=== PATIENT | female | born 1945 | race Caucasian/White ===

== ENCOUNTER 2018-05-02 16:06 | Outpatient (REF) | payer MEDICARE, OTHER, SELFPAY ==
[2018-05-02 22:21] LABS: Cholesterol 160 mg/dL (50-200); HDL Cholesterol 75 mg/dL (40-60); LDL CHOLESTEROL 63 mg/dL (<100); Triglyceride 122 mg/dL (30-150)
[2018-05-04 12:32] LABS: Hepatitis C Ab w Rflx HCV PCR Negative (NEGAT)
== END 2018-05-02 16:26 ==
LOC: NCHCN 16:06
PROVIDERS: PCP Internal Medicine; Visit Provider Internal Medicine
DX: E78.5 Hyperlipidemia, unspecified (principal); Z11.59 Encounter for screening for other viral diseases
CPT/HCPCS: 80061; 83721; 86803

== ENCOUNTER 2018-09-26 01:36 | Outpatient (CLI) | payer MEDICARE, OTHER, SELFPAY ==
--- NOTE | 2018-09-26 13:00 | SATEXT_ITS ---
Assessment: Ms. Wilson presents for nutritional counseling for weight management. She reports that she has struggled with her weight for most of her life. She is 58 and 246 lbs. Her diet currently consists of breakfast which is an Hebrew muffin or bagel thin with peanut butter and honey and coffee. She then snacks on a few chips or a few cookies. Lunch is a sandwich on low calorie bread or cottage cheese and greens. She then has a snack of cheese or peanuts. Dinner is protein and a veggie and cottage cheese. She then has a snack of sugar free pudding. In the past she has done swim therapy for her physical activity and overall has enjoyed it. Currently she is not active. She relays a very stressful time recently with her having been sick. Nutritional Diagnosis: Class 3 obesity related to excess energy intake and physical inactivity as evidenced by a BMI of 51.75 kg/m2 Intervention: We discussed that her weight has been a life long struggle and that she has significant weight that she would like to lose. To that end, it is important to set small goals to get her to her big goal. She verbalized a good understanding of that concept. Until our next session, Ms. Wilson, will either change or eliminate her snacks. Provided low calorie, non-caloric, and high protein snack ideas should she feel she needs a snack. Her second action plan is to get signed back up for swim therapy. Ms. Wilson agrees to the action plans. Monitoring and Evaluation: 1. Will monitor her progress on her action plans when she returns in a few weeks. 2. Will evaluate her nutrition care plan at that time and adjust it as needed. Thank you for the referral. Total time spent with patient face to face was 40 minutes.
== END 2018-09-26 01:56 ==
PROVIDERS: PCP Internal Medicine; Visit Provider Dietitian, Registered
DX: E66.8 Other obesity (principal); Z68.42 Body mass index [BMI] 45.0-49.9, adult; Z71.3 Dietary counseling and surveillance
CPT/HCPCS: 97802

== ENCOUNTER 2018-10-27 02:42 | Outpatient (CLI) | payer MEDICARE, OTHER, SELFPAY ==
--- NOTE | 2018-10-27 14:00 | NS.NUTBLAN_ITS ---
Ms. Wilson returns for follow up for weight management nutrition therapy. She has started swim therapy. She reports that she is keeping her portions moderate and increasing her vegetables. Her weight is stable at 246.5 lbs.. Provided several recipes that include vegetables so she can continue to improve her diet. She will return for follow up in three weeks. Total time spent with patient was 40 minutes.
== END 2018-10-27 03:02 ==
PROVIDERS: PCP Internal Medicine; Visit Provider Dietitian, Registered
DX: E66.9 Obesity, unspecified (principal); Z68.43 Body mass index [BMI] 50.0-59.9, adult; Z71.3 Dietary counseling and surveillance
CPT/HCPCS: 97803

== ENCOUNTER 2018-11-30 13:40 | Outpatient (REF) | payer MEDICARE, OTHER, SELFPAY ==
[2018-11-30 21:41] LABS: Anion Gap 12.5 mmol/L (3-11); BUN 11 mg/dL (7-18); CO2 24.5 mmol/L (21.0-32.0); CREATININE 0.85 mg/dL (0.55-1.02); Calcium 8.8 mg/dL (8.5-10.1); Chloride 91 mmol/L (98-107); Glucose 126 mg/dL (70-100); Potassium 4.7 mmol/L (3.5-5.1); Sodium 128 mmol/L (136-145)
== END 2018-11-30 14:00 ==
LOC: NCHCN 13:40
PROVIDERS: PCP Internal Medicine; Visit Provider Internal Medicine
DX: I27.20 Pulmonary hypertension, unspecified (principal)
CPT/HCPCS: 80048

== ENCOUNTER 2019-06-07 16:59 | Outpatient (REF) | payer MEDICARE, OTHER, SELFPAY ==
[2019-06-07 21:16] LABS: HCT 35.8 % (36.0-46.0); HGB 11.4 g/dL (12.0-15.5); Mean Corp. HGB Concentration 31.8 g/dL (32.0-36.0); Mean Corpuscular Hemoglobin 29.2 pg (27.0-33.0); Mean Corpuscular Volume 91.6 fL (80-95); Mean Platelet Volume 11.3 fL (8.0-11.0); Platelet Count 258 x1000/uL (130-400); RBC 3.91 m/cumm (4.00-5.20); RBC Distribution Width 14.7 % (11.7-14.6); White Blood Cell Count 6.56 k/cumm (4.4-10.8)
[2019-06-07 21:23] LABS: ALT 22 U/L (14-59); AST 10 U/L (15-37); Albumin 3.8 g/dL (3.4-5.0); Alkaline Phosphatase 98 U/L (46-116); Anion Gap 10.3 mmol/L (3-11); BUN 16 mg/dL (7-18); Bilirubin, Total 0.3 mg/dL (0.2-1.0); CO2 26.7 mmol/L (21.0-32.0); CREATININE 1.09 mg/dL (0.55-1.02); Calcium 8.8 mg/dL (8.5-10.1); Chloride 98 mmol/L (98-107); Estimated GFR 49.07 (mL/min/1.73m2); Glucose 122 mg/dL (74-106); Potassium 4.5 mmol/L (3.5-5.1); Sodium 135 mmol/L (136-145); Total Protein 7.5 g/dL (6.4-8.2)
[2019-06-07 21:47] LABS: Hemoglobin A1C 6.6 % (3.8-5.6)
== END 2019-06-07 17:19 ==
LOC: NCHCN 16:59
PROVIDERS: PCP Internal Medicine; Visit Provider Internal Medicine
DX: R73.03 Prediabetes (principal); I27.20 Pulmonary hypertension, unspecified; E87.1 Hypo-osmolality and hyponatremia
CPT/HCPCS: 80053; 85027; 83036

== ENCOUNTER 2020-06-23 15:24 | Outpatient (REF) | payer MEDICARE, OTHER, SELFPAY ==
[2020-06-23 21:10] LABS: Anion Gap 6.6 mmol/L (3-11); BUN 16 mg/dL (7-18); CO2 27.4 mmol/L (21.0-32.0); CREATININE 0.76 mg/dL (0.55-1.02); Calcium 8.9 mg/dL (8.5-10.1); Chloride 98 mmol/L (98-107); Glucose 88 mg/dL (74-106); Potassium 4.6 mmol/L (3.5-5.1); Sodium 132 mmol/L (136-145)
[2020-06-23 21:19] LABS: Hemoglobin A1C 6.4 % (<5.7)
== END 2020-06-23 15:44 ==
LOC: NCHCN 15:24
PROVIDERS: PCP Internal Medicine; Visit Provider Internal Medicine
DX: I10 Essential (primary) hypertension (principal); E11.9 Type 2 diabetes mellitus without complications; I27.20 Pulmonary hypertension, unspecified
CPT/HCPCS: 80048; 83036

== ENCOUNTER 2020-11-13 15:25 | Outpatient (REF) | payer MEDICARE, OTHER, SELFPAY ==
[2020-11-13 20:43] LABS: Abs Immature Grans 0.04 10^3/uL (0.0-0.06); Absolute Basophil Count 0.02 10^3/uL (0.0-0.2); Absolute Eosinophil Count 0.11 10^3/uL (0.0-0.7); Absolute Lymphocyte Count 1.45 10^3/uL (1.2-3.4); Absolute Monocyte Count 0.49 10^3/uL (0.1-0.8); Absolute Neutrophil Count 5.43 10^3/uL (1.2-6.7); Basophils % 0.3; Eosinophils % 1.5; HCT 36.5 % (36.0-46.0); HGB 11.8 g/dL (11.2-15.7); Immature Grans % 0.5; Lymphocytes % 19.2; MCH 29.4 pg (27.0-33.0); MCHC 32.3 % (32.0-36.0); MPV 11.6 fL (8.0-11.0); Monocytes % 6.5; Nucleated RBC 0 %; Platelet Count 231 10^3/uL (130-400); RBC 4.01 10^6/uL (3.93-5.22); RDW 14.7 % (11.7-14.6); RDW-SD 49.6 fL; WBC 7.54 10^3/uL (4.4-10.8)
[2020-11-13 21:08] LABS: Anion Gap 10.5 mmol/L (3-11); BUN 15 mg/dL (7-18); CO2 26.5 mmol/L (21.0-32.0); CREATININE 0.8 mg/dL (0.55-1.02); Chloride 100 mmol/L (98-107); Glucose 112 mg/dL (74-106); NT-proBNP 1158 pg/mL (<300); Potassium 4.5 mmol/L (3.5-5.1); Sodium 137 mmol/L (136-145)
== END 2020-11-13 15:26 | disposition home or self-care (01) ==
LOC: NCHCN 15:25
PROVIDERS: PCP Internal Medicine; Visit Provider Internal Medicine
DX: E87.1 Hypo-osmolality and hyponatremia (principal); I50.9 Heart failure, unspecified; R53.83 Other fatigue
CPT/HCPCS: 80048; 83880; 85025

== ENCOUNTER 2020-12-09 01:42 | Outpatient (CLI) | payer MEDICARE, OTHER, SELFPAY ==
--- NOTE | 2020-12-09 14:00 | DI.US_ITS ---
APPROVED REPORT EXAM: Comprehensive 2D, Doppler, and color-flow Echocardiogram Patient Location: Out-Patient Financial Reporting Analyst: Yuni Melchor RDCS ([place]) Indications: SOB Other Information Study Quality: Technically Difficult. Technically limited study due to body habitus,arrhythmia. Conclusion Left Ventricle : The left ventricle is normal size. Left ventricular systolic function is borderline. Unable to accurately visualize all bowles. There is normal left ventricular wall thickness. LVEF is 5 0-55%. Right Ventricle : Right ventricle is grossly normal in size. Right ventricular systolic function is g rossly normal. The RVSP is 36.3 mmHg. Atria : Left atrium is mildly dilated. Right atrium is borderline dilated. Mitral Valve : Moderate mitral annular calcification. Mild mitral regurgitation. No evidence of misty l valve stenosis. Great Vessels : The aortic root is normal in size. The ascending aorta is mildly dilated. Aortic arch is not well visualized. IVC is normal in size and collapses >50% with inspiration. Please see remainder of study for further details. Wall motion Left Ventricle The left ventricle is normal size. Left ventricular systolic function is borderline. There is normal left ventricular wall thickness. Unable to accurately visualize all bowles. There is no ventricular se ptal defect visualized. LVEF is 50-55%. Right Ventricle Right ventricle is grossly normal in size. Right ventricular systolic function is grossly normal. The RVSP is 36.3 mmHg. Atria Left atrium is mildly dilated. Right atrium is borderline dilated. The interatrial septum is intact w ith no evidence for an atrial septal defect. Aortic Valve The aortic valve is normal in structure. Aortic valve is trileaflet. There is no aortic valvular sten osis. No aortic regurgitation is present. Mitral Valve Moderate mitral annular calcification. No evidence of mitral valve stenosis. Mild mitral regurgitatio n. Tricuspid Valve The tricuspid valve is normal in structure. There is no tricuspid valve stenosis. Trace to mild tricu spid regurgitation. Pulmonic Valve Pulmonic valve is not well visualized. There is no pulmonic valvular stenosis. There is no pulmonic v alvular regurgitation. Great Vessels The aortic root is normal in size. The ascending aorta is mildly dilated. Aortic arch is not well vis ualized. IVC is normal in size and collapses >50% with inspiration. Pericardium There is no pericardial effusion. 2D Dimensions IVSD d PLAX 1.02 cm F: 0.6-1.0 LV Vol A2C d MOD 94.1 mL LVPW d PLAX 1.01 cm F: 0.6 - 1.0 LV Vol A4C d MOD 99.8 mL LVID d PLAX 4.14 cm F: 3.8 - 5.2 LA vol/ BSA A2C s A-L 38.2 mL/m2 LVDs 3.05 cm F: 2.2 - 3.5 LA vol/ BSA A4C s A-L 39.0 mL/m2 Ao Root d 3.15 cm F: 2.7 - 3.3 LA Vol/ BSA Biplane s A-L 39.0 mL/m2 RA Area A4C 18.06 cm2 LA Area A4C s MOD 24.02 cm2 RA Vol/ BSA A4C s A-L 25.6 mL/m2 LA Area A2C s MOD 23.98 cm2 Ao Asc Diam d 3.37 cm F: 2.3 - 3.1 LV EF A4C MOD 55.5 % LV EF Teichholz 51.6 % LV EF A2C MOD 50.8 % LVEF (Robins's) 53.42 % F: 54 - 74 LV EF Biplane MOD 53.4 % LV Volume 73.03 mL F: 46 - 106 SV 52.24 mL LV Volume Index 36.15 mL/m2 F: 29 - 61 SV Index 25.78 mL/m2 LV Vol Biplane MOD 97.8 mL FS 26.05 % M-Mode TAPSE 1.47 cm (M/F) >1.7 LV Diastology MV E' medial 0.092 (>0.07 m/s) MV E Vmax 1.38 (0.4-1.3 m/s) LV E/e MED 15.05 (<14) MV E' lateral 0.100 (>0.1 m/s) LV E/e LAT 13.75 (<14) MV E/E' medial 15.07 MV E/E' lateral 13.78 Aortic Valve LVOT Area 2.83 cm2 AoV Area Vmax 2.17 cm2 LVOT Vmax 1.17 m/s AoV Area/ BSA (Vmax) 1.07 cm2/m2 LVOT Mean Maury. 0.70 m/s PRESLEY Mean Maury. 1.91 cm2 LVOT Peak Grad 5.5 mmHg PRESLEY Mean Maury. Index 0.94 cm2/m2 LVOT Mean Grad 2.4 mmHg LVOT VTI 0.233 m LVOT Diam s 1.85 cm AoV Vmax 1.53 m/s Velocity Ratio 0.76 AoV Mean Maury. 1.03 m/s AoV Peak Grad 9.3 mmHg LVOT SV 65.86 mL AoV Mean Grad 4.8 mmHg AoV VTI 0.251 m AoV Area VTI 2.62 cm2 AoV Area/ BSA (VTI) 1.29 cm/m2 Mitral Valve MV DT 227 (160-240 msec) MV PHT 66 msec MV Area PHT 3.34 cm2 MV VTI 0.482 m MV VTI Annulus 0.448 m MV Area VTI 1.28 (4.0-6.0 cm2) Pulmonary Valve PV Vmax 1.12 (0.5-1.5 m/s) RVOT Peak Gr. 1.76 mmHg PV Peak Grad 5.1 mmHg RVOT Mean Gr. 0.75 mmHg PV Mean Grad 2.1 mmHg RVOT VTI 0.106 m PV VTI 0.207 m RVOT Vmax 0.66 m/s Tricuspid Valve TR Peak Grad 33.2 mmHg TR Vmax 2.88 m/s RA Pressure 3.00 mmHg RVSP (TR) 36.3 mmHg
== END 2020-12-09 02:02 ==
PROVIDERS: PCP Internal Medicine; Visit Provider Internal Medicine
DX: R06.02 Shortness of breath (principal); R93.9 Diagnostic imaging inconclusive due to excess body fat of patient; I49.9 Cardiac arrhythmia, unspecified; I34.0 Nonrheumatic mitral (valve) insufficiency; I77.810 Thoracic aortic ectasia
CPT/HCPCS: 93306

== ENCOUNTER → 2021-09-01 13:59 | Outpatient (BNVA) | payer MEDICARE, OTHER, SELFPAY | PROVIDERS: PCP Internal Medicine; Referring Provider Nurse Practitioner Family; Visit Provider Psychiatry & Neurology Neurology | DX: G50.0 Trigeminal neuralgia (principal) | CPT/HCPCS: 99204 ==

== ENCOUNTER → 2021-10-06 12:48 | Outpatient (BNVA) | payer MEDICARE, OTHER, SELFPAY | PROVIDERS: PCP Internal Medicine; Referring Provider Internal Medicine; Visit Provider Psychiatry & Neurology Neurology | DX: G50.0 Trigeminal neuralgia (principal) | CPT/HCPCS: 99213 ==

== ENCOUNTER 2022-02-10 15:50 | Outpatient (REF) | payer MEDICARE, OTHER, SELFPAY ==
[2022-02-10 20:02] LABS: HGB 11.6 g/dL (11.2-15.7); MCH 29.1 pg (27.0-33.0); MCHC 32.2 % (32.0-36.0); MCV 90 fL (80-95); MPV 11.3 fL (8.0-11.0); Platelet Count 251 10^3/uL (130-400); RBC 3.99 10^6/uL (3.93-5.22); RDW 14.6 % (11.7-14.6); RDW-SD 48.8 fL; WBC 7.34 10^3/uL (4.4-10.8)
[2022-02-10 20:19] LABS: ALT 20 U/L (14-59); AST 13 U/L (15-37); Alkaline Phosphatase 97 U/L (46-116); Anion Gap 5.7 mmol/L (3-11); BUN 12 mg/dL (7-18); Bilirubin, Total 0.5 mg/dL (0.2-1.0); CO2 29.3 mmol/L (21.0-32.0); CREATININE 0.8 mg/dL (0.55-1.02); Calcium 9.4 mg/dL (8.5-10.1); Chloride 91 mmol/L (98-107); Estimated GFR 75.84 (mL/min/1.73m2); Glucose 90 mg/dL (74-106); NT-proBNP 474 pg/mL (<300); Potassium 5.5 mmol/L (3.5-5.1); Sodium 126 mmol/L (136-145); Total Protein 7.6 g/dL (6.4-8.2)
== END 2022-02-10 15:51 | disposition home or self-care (01) ==
LOC: NCHCN 15:50
PROVIDERS: PCP Internal Medicine; Visit Provider Nurse Practitioner Family
DX: J44.9 Chronic obstructive pulmonary disease, unspecified (principal); E11.9 Type 2 diabetes mellitus without complications
CPT/HCPCS: 80053; 85027; 83880

== ENCOUNTER → 2022-02-12 01:04 | Outpatient (CLI) | payer MEDICARE, OTHER, SELFPAY ==
--- NOTE | 2022-02-12 | DI.RAD_ITS ---
Exam(s) XR CHEST 2V PA LATERAL EXAM: XR CHEST 2V PA LATERAL CLINICAL HISTORY: COPD MIXED TYPE, J44.9, COUGH, R05.8 TECHNIQUE: COMPARISON: CR CHEST 2 VIEWS PA,LAT from 11/08/2017 FINDINGS: The heart is enlarged. There appear to be some changes of basilar pulmonary scarring. No focal cons olidation. No gross interval change appearance comparison with examination of October 2017. no pleural e ffusion seen. IMPRESSION: Cardiomegaly, no evidence of acute process. RADIATION DOSE DELIVERED: Total DLP
== END ==
PROVIDERS: PCP Internal Medicine; Visit Provider Nurse Practitioner Family
DX: R05.8 Other specified cough (principal); J44.9 Chronic obstructive pulmonary disease, unspecified; I51.7 Cardiomegaly
CPT/HCPCS: 71046

== ENCOUNTER 2022-03-23 15:46 | Outpatient (REF) | payer MEDICARE, OTHER, SELFPAY ==
[2022-03-23 14:44] LABS: HCT 36.3 % (36.0-46.0); HGB 11.7 g/dL (11.2-15.7); MCH 30.3 pg (27.0-33.0); MCHC 32.2 % (32.0-36.0); MCV 94 fL (80-95); Platelet Count 216 10^3/uL (130-400); RBC 3.86 10^6/uL (3.93-5.22); RDW 15.3 % (11.7-14.6); RDW-SD 52.9 fL; WBC 7.15 10^3/uL (4.4-10.8)
[2022-03-23 15:06] LABS: ALT 25 U/L (14-59); AST 17 U/L (15-37); Albumin 3.8 g/dL (3.4-5.0); Alkaline Phosphatase 90 U/L (46-116); Anion Gap 6.4 mmol/L (3-11); BUN 15 mg/dL (7-18); Bilirubin, Total 0.2 mg/dL (0.2-1.0); CO2 30.6 mmol/L (21.0-32.0); CREATININE 0.7 mg/dL (0.55-1.02); Calcium 9.1 mg/dL (8.5-10.1); Chloride 96 mmol/L (98-107); Estimated GFR 89.02 (mL/min/1.73m2); Glucose 96 mg/dL (74-106); NT-proBNP 475 pg/mL (<300); Potassium 5.3 mmol/L (3.5-5.1); Sodium 133 mmol/L (136-145); TSH (W/Ref FT4) 2.14 uIU/mL (0.36-3.74); Total Protein 7.3 g/dL (6.4-8.2)
[2022-03-23 17:55] LABS: Iron 58 ug/dL (50-170); Total Iron Binding Capacity 424 ug/dL (250-450); Transferrin Sat 14 % (15-50)
== END 2022-03-23 15:47 | disposition home or self-care (01) ==
LOC: NCHCN 15:46
PROVIDERS: PCP Internal Medicine; Visit Provider Nurse Practitioner Family
DX: E11.9 Type 2 diabetes mellitus without complications (principal); R53.83 Other fatigue; I10 Essential (primary) hypertension; J44.9 Chronic obstructive pulmonary disease, unspecified
CPT/HCPCS: 80053; 85027; 83540; 83550; 83880; 84443

== ENCOUNTER → 2022-04-14 02:09 | Outpatient (CLI) | payer MEDICARE, OTHER, SELFPAY ==
--- NOTE | 2022-04-14 14:02 | DI.US_ITS ---
APPROVED REPORT EXAM: Comprehensive 2D, Doppler, and color-flow Echocardiogram Patient Location: Out-Patient Canine Enforcement Officer: Yuni Melchor RDCS ([place]) Indications: Heart failure, Cough Other Information Study Quality: Fair. Technically limited study due to body habitus. Conclusion Borderline concentric left ventricular hypertrophy. Estimated ejection fraction is 50 to 55%. Septa l motion suggests an interventricular conduction delay Right ventricle is grossly normal in size and systolic function Both atria are moderately dilated Aortic valve is sclerotic without stenosis or regurgitation Mitral annular calcification. Thickened mitral leaflets. Mild to moderate mitral regurgitation Normal tricuspid valve with mild to moderate regurgitation. Estimated right ventricular systolic pre ssure is 37 mmHg Mildly dilated ascending aorta Patient appears to be in atrial flutter with variable conduction throughout the study, heart rate gen erally controlled Wall motion Left Ventricle The left ventricle is normal size. Left ventricular systolic function is mildly decreased. Borderline concentric left ventricular hypertrophy. There is global hypokinesis of the left ventricle. There is no ventricular septal defect visualized. LVEF is 50-55%. Right Ventricle Right ventricle is grossly normal in size. Right ventricular systolic function is grossly normal. The RVSP is 37.1 mmHg. Atria Left atrium is moderately dilated. Right atrium is moderately dilated. The interatrial septum is inta ct with no evidence for an atrial septal defect. Aortic Valve The Aortic valve is sclerotic. Aortic valve is probably trileaflet. There is no aortic valvular steno sis. No aortic regurgitation is present. Mitral Valve Moderate mitral annular calcification. Mitral valve leaflets are thickened. No evidence of mitral severo ve stenosis. Mild to moderate mitral regurgitation. Tricuspid Valve The tricuspid valve is normal in structure. There is no tricuspid valve stenosis. Mild to moderate tr icuspid regurgitation. Pulmonic Valve The pulmonary valve is normal in structure. There is no pulmonic valvular stenosis. There is no pulmo najma valvular regurgitation. Great Vessels The aortic root is normal in size. The ascending aorta is mildly dilated. Aortic arch is not well vis ualized. IVC is normal in size and collapses >50% with inspiration. Pericardium There is no pericardial effusion. 2D Dimensions IVSD d PLAX 1.06 cm F: 0.6-1.0 LV Vol A2C d MOD 154.0 mL LVPW d PLAX 1.06 cm F: 0.6 - 1.0 LV Vol A4C d MOD 74.1 mL LVID d PLAX 4.15 cm F: 3.8 - 5.2 LA vol/ BSA A2C s A-L 52.7 mL/m2 LVDs 3.15 cm F: 2.2 - 3.5 LA vol/ BSA A4C s A-L 35.5 mL/m2 Ao Root d 2.81 cm F: 2.7 - 3.3 LA Vol/ BSA Biplane s A-L 44.9 mL/m2 RA Area A4C 16.30 cm2 LA Area A4C s MOD 22.93 cm2 RA Vol/ BSA A4C s A-L 20.5 mL/m2 LA Area A2C s MOD 29.01 cm2 Ao Asc Diam d 3.38 cm F: 2.3 - 3.1 LV EF A4C MOD 50.5 % LV EF Teichholz 47.8 % LV EF A2C MOD 50.7 % LVEF (Robins's) 50.60 % F: 54 - 74 LV EF Biplane MOD 50.6 % LV Volume 82.20 mL F: 46 - 106 SV 55.67 mL LV Volume Index 36.64 mL/m2 F: 29 - 61 SV Index 27.52 mL/m2 LV Vol Biplane MOD 110.0 mL FS 23.75 % M-Mode TAPSE 1.63 cm (M/F) >1.7 LV Diastology MV E' medial 0.075 (>0.07 m/s) MV E Vmax 1.64 (0.4-1.3 m/s) LV E/e MED 21.75 (<14) MV E' lateral 0.097 (>0.1 m/s) LV E/e LAT 16.90 (<14) MV E/E' medial 21.75 MV E/E' lateral 16.92 Aortic Valve LVOT Area 2.97 cm2 AoV Area Vmax 2.69 cm2 LVOT Vmax 1.15 m/s AoV Area/ BSA (Vmax) 1.33 cm2/m2 LVOT Mean Maury. 0.71 m/s PRESLEY Mean Maury. 2.44 cm2 LVOT Peak Grad 5.3 mmHg PRESLEY Mean Maury. Index 1.21 cm2/m2 LVOT Mean Grad 2.5 mmHg LVOT VTI 0.232 m LVOT Diam s 1.90 cm AoV Vmax 1.27 m/s Velocity Ratio 0.90 AoV Mean Maury. 0.87 m/s AoV Peak Grad 6.5 mmHg LVOT SV 68.91 mL AoV Mean Grad 3.4 mmHg AoV VTI 0.248 m AoV Area VTI 2.78 cm2 AoV Area/ BSA (VTI) 1.37 cm/m2 Mitral Valve MV DT 197 (160-240 msec) MV PHT 57 msec MV Area PHT 3.85 cm2 MV VTI 0.300 m MV VTI Annulus 0.300 m Pulmonary Valve PV Vmax 0.86 (0.5-1.5 m/s) RVOT Peak Gr. 2.13 mmHg PV Peak Grad 2.9 mmHg RVOT Mean Gr. 1.05 mmHg PV Mean Grad 1.6 mmHg RVOT VTI 0.129 m PV VTI 0.165 m RVOT Vmax 0.73 m/s Tricuspid Valve TR Peak Grad 34.1 mmHg TR Vmax 2.92 m/s RA Pressure 3.00 mmHg RVSP (TR) 37.1 mmHg
== END ==
PROVIDERS: PCP Internal Medicine; Visit Provider Nurse Practitioner Family
DX: I50.9 Heart failure, unspecified (principal)
CPT/HCPCS: 93306

== ENCOUNTER 2022-06-03 13:39 | Outpatient (RCR) | payer MEDICARE, OTHER, SELFPAY ==
--- NOTE | 2022-06-03 13:45 | HOLTER_ITS ---
APPROVED REPORT Conclusion This is a 48-hour Holter monitor ordered for fatigue Patient was in atrial flutter throughout the recording with an average heart rate of 81. Minimum was 54, maximum 114 There were insignificant ventricular ectopic beats, no ventricular tachycardia Was no high-grade AV block, no pauses greater than 3 seconds
== END 2022-06-12 23:59 | disposition home or self-care (01) ==
LOC: CARDOPNVT 13:39
PROVIDERS: PCP Internal Medicine; Visit Provider Nurse Practitioner Family
DX: R53.83 Other fatigue (principal); I48.92 Unspecified atrial flutter
CPT/HCPCS: 93227; 93225; 93226

== ENCOUNTER → 2022-06-10 13:49 | Outpatient (BNVA) | payer MEDICARE, OTHER, SELFPAY | PROVIDERS: PCP Internal Medicine; Referring Provider Internal Medicine; Visit Provider Internal Medicine Cardiovascular Disease | DX: I25.10 Atherosclerotic heart disease of native coronary artery without angina pectoris (principal); I48.92 Unspecified atrial flutter; I10 Essential (primary) hypertension; G47.33 Obstructive sleep apnea (adult) (pediatric); Z99.89 Dependence on other enabling machines and devices; E66.01 Morbid (severe) obesity due to excess calories | CPT/HCPCS: 93005; 93227; 99203; 99214 ==

== ENCOUNTER 2022-06-10 13:51 | Outpatient (CLI) | payer MEDICARE, OTHER, SELFPAY ==
--- NOTE | 2022-06-10 13:45 | RT.EKG_ITS ---
APPROVED REPORT Exam: Resting ECG Reason for Exam: CAD Patient Location: O HR:80 bpm ECG Measurements Heart Rate 80 AXIS NM [id number] P [id number] QRSd 140 QRS 46 QT 474 T 67 QTc 547 Conclusion Atrial flutter...A-rate 211 IVCD, consider atypical RBBB...QRSd>120mS, terminal axis(90,270)
== END 2022-06-10 13:52 | disposition home or self-care (01) ==
LOC: DI.CARD 13:51
PROVIDERS: PCP Internal Medicine; Visit Provider Internal Medicine Cardiovascular Disease
DX: I25.10 Atherosclerotic heart disease of native coronary artery without angina pectoris (principal); I25.2 Old myocardial infarction; I48.92 Unspecified atrial flutter
CPT/HCPCS: 93010

== ENCOUNTER 2022-10-08 15:03 | Outpatient (REF) | payer MEDICARE, SELFPAY ==
[2022-10-08 21:20] LABS: HCT 35.7 % (36.0-46.0); HGB 11.6 g/dL (11.2-15.7); MCHC 32.5 % (32.0-36.0); MCV 89 fL (80-95); Platelet Count 233 10^3/uL (130-400); RDW 14.3 % (11.7-14.6); RDW-SD 46.2 fL; WBC 7.98 10^3/uL (4.4-10.8)
[2022-10-08 21:44] LABS: ALT 22 U/L (14-59); AST 12 U/L (15-37); Albumin 3.9 g/dL (3.4-5.0); Alkaline Phosphatase 102 U/L (46-116); BUN 13 mg/dL (7-18); Bilirubin, Total 0.4 mg/dL (0.2-1.0); CREATININE 0.8 mg/dL (0.55-1.02); Calcium 9.5 mg/dL (8.5-10.1); Chloride 92 mmol/L (98-107); Estimated GFR 75.84 (mL/min/1.73m2); Glucose 105 mg/dL (74-106); NT-proBNP 612 pg/mL (<300); Potassium 4.7 mmol/L (3.5-5.1); Sodium 128 mmol/L (136-145); Total Protein 7.8 g/dL (6.4-8.2)
== END 2022-10-08 15:04 | disposition home or self-care (01) ==
LOC: NCHCN 15:03
PROVIDERS: PCP Internal Medicine; Visit Provider Nurse Practitioner Family
DX: I48.92 Unspecified atrial flutter (principal); I50.9 Heart failure, unspecified; E87.1 Hypo-osmolality and hyponatremia; R53.83 Other fatigue
CPT/HCPCS: 80053; 85027; 83880

== ENCOUNTER 2022-10-27 17:51 | Outpatient (REF) | payer MEDICARE, SELFPAY ==
[2022-10-27 22:12] LABS: ALT 18 U/L (14-59); AST 16 U/L (15-37); Albumin 3.6 g/dL (3.4-5.0); Alkaline Phosphatase 103 U/L (46-116); Anion Gap 8.1 mmol/L (3-11); BUN 14 mg/dL (7-18); Bilirubin, Total 0.3 mg/dL (0.2-1.0); CO2 25.9 mmol/L (21.0-32.0); CREATININE 0.8 mg/dL (0.55-1.02); Calcium 9.5 mg/dL (8.5-10.1); Chloride 96 mmol/L (98-107); Estimated GFR 75.84 (mL/min/1.73m2); Glucose 86 mg/dL (74-106); Potassium 4.2 mmol/L (3.5-5.1); Sodium 130 mmol/L (136-145); Total Protein 7.9 g/dL (6.4-8.2)
== END 2022-10-27 17:52 | disposition home or self-care (01) ==
LOC: NCHCN 17:51
PROVIDERS: PCP Internal Medicine; Visit Provider Nurse Practitioner Family
DX: I10 Essential (primary) hypertension (principal); E87.1 Hypo-osmolality and hyponatremia; R06.09 Other forms of dyspnea
CPT/HCPCS: 80053

== ENCOUNTER 2022-10-29 02:56 | Inpatient (IN) | payer MEDICARE, SELFPAY ==
[2022-10-29] VITALS (57 sets, daily range): BP systolic 88–144; BP diastolic 38–115; PULSE 38–185; RESP 13–22; TEMP 35.8–36.7; O2SAT 83–98
--- NOTE | 2022-10-29 02:45 | RT.EKG_ITS ---
APPROVED REPORT Exam: Resting ECG Reason for Exam: fall Patient Location: E HR:32 bpm ECG Measurements Heart Rate 32 AXIS WV [id number] P [id number] QRSd 156 QRS 61 QT 581 T 80 QTc 422 Conclusion Atrial flutter...A-rate 205 IVCD, consider RBBB...QRSd>120mS, terminal axis(90,270) ST elevation secondary to atrial flutter Abnrm T, consider ischemia, anterolateral lds...T <-0.20mV, I aVL V2-V6
--- NOTE | 2022-10-29 03:00 | DI.CT_ITS ---
Exam(s) CT HEAD WO EXAM: CT HEAD WO CLINICAL HISTORY: head trauma on eliquis. TECHNIQUE: Imaging Protocol: Axial computed tomography images with coronal and sagittal reformatted images were created and reviewed COMPARISON: There are no priors for comparison. FINDINGS: Ventricles and Extra axial spaces: Normal in size and morphology for the patient's age. Hemorrhage: None. Cerebral parenchyma: There is no evidence of an acute territorial infarct. There are areas of decrea sed attenuation in the white matter consistent with small vessel ischemic disease. Midline shift: None. Brainstem/Cerebellum: Normal. Calvarium: Normal. Visualized Paranasal sinuses/Mastoids: There is mild mucosal thickening in the left sphenoid sinus. The remaining visualized paranasal sinuses and mastoid air cells are clear. Soft Tissues: There is mild soft tissue swelling of the left periorbital soft tissues and left fronta l scalp. IMPRESSION: 1. No acute intracranial process. 2. Mild swelling of the left pleural soft tissues and the left frontal scalp. RADIATION DOSE DELIVERED: 726.41mGy.cm Total DLP DATA REPOSITORY: All CT scans at this facility are submitted to the National Radiology Data Registry (NRDR) Dose Index Registry (DIR) with the [employer] ([employer]). RADIATION OPTIMIZATION: All CT scans at this facility use at least one of these dose optimization te chniques: automated exposure control; mA and/or kV adjustment per patient size (includes targeted exa ms where dose is matched to clinical indication); or iterative reconstruction.
--- NOTE | 2022-10-29 03:00 | DI.RAD_ITS ---
Exam(s) XR PORTABLE CHEST AP EXAM: XR PORTABLE CHEST AP CLINICAL HISTORY: dyspnea TECHNIQUE: 2D digital imaging was performed of the chest. One image was obtained. An AP view was ob tained. COMPARISON: CR XR CHEST 2V PA LATERAL from 02/12/2022 FINDINGS: MEDIASTINUM: Normal. HEART: Cardiomegaly. PULMONARY VASCULATURE: Normal. LUNGS: There opacity seen in the medial aspect of the right lung base in the left lower lobe. PLEURAL SPACE: No pleural effusion or pneumothorax. BONE:Within normal limits for the patient's age. OTHER FINDINGS:Normal. IMPRESSION: Bilateral pulmonary opacities which may represent pneumonia or pulmonary edema. Please correlate cli nically. DATA REPOSITORY: RADIATION DOSE DELIVERED:
--- NOTE | 2022-10-29 03:02 | W.ED.GENAD ---
Discharge Plan Disposition Patient Disposition: Admit to [facility] Discharge Details Clinical Impression: Bradyarrhythmia, Atrial flutter, Syncope Primary Care Provider: Parth Harry ED Provider: Jameel Alba Home Meds and New Rx's Prescriptions: No Action losartan 50 mg tablet 50 mg PO DAILY acetaminophen [Tylenol Arthritis Pain] 650 mg tablet extended release 650 mg PO BID atorvastatin 40 mg tablet 40 mg PO QHS clopidogrel 75 mg tablet 75 mg PO DAILY sennosides [senna] 8.6 mg tablet 17.2 mg PO DAILY nitroglycerin 0.4 mg tablet, sublingual 0.4 mg sublingual Q5M PRN Rx Instructions: do not exceed 3 doses per episode diphenhydramine HCl [Allergy (diphenhydramine)] 25 mg tablet 25 mg PO .COMPLEX Rx Instructions: 25 mg PO; budesonide-formoterol [Symbicort] 160-4.5 mcg/actuation HFA aerosol inhaler 2 puff inhalation BID oxcarbazepine 300 mg tablet 600 mg PO BID spironolactone 25 MG tablet 25 mg PO DAILY Bupropion HCl 100 MG tablet 100 mg PO HS pantoprazole 20 mg tablet,delayed release (DR/EC) 40 mg PO DAILY duloxetine [Cymbalta] 20 mg capsule,delayed release(DR/EC) 20 mg PO DAILY magnesium oxide 400 MG tablet 400 mg PO DAILY Qty: 30 0RF carvedilol [Coreg] 12.5 MG tablet 25 mg PO BID Qty: 0 0RF calcium carbonate 600 mg calcium (1,500 mg) tablet 600 mg PO BID diltiazem HCl [DILT-XR] 240 MG capsule,ext.rel 24h degradable 240 mg PO HS Eliquis 5 MG tablet 5 mg PO BID Medical Decision Making Patient who had a syncopal episode and was noted to be bradycardic with a heart rate in the 30s EKG showing atrial flutter with 61 block. Suspecting diltiazem toxicity the patient was given glucagon and atropine with improvement of her symptoms she will need to be observed still in the hospital and admitted for it this may be a sick sinus syndrome with atrial flutter since she has had atrial flutter chronically. Patient now stable with normal vital signs and she will be admitted by the hospitalist for telemetry monitoring and cardiology consultation Medical Records Medical records reviewed: Yes I reviewed the patient's medical records. Imaging Data Radiologic Study: Imaging: X-Ray Radiologist's impression: Exam(s) PROCEDURE INFORMATION: Exam: XR Chest Exam date and time: 10/29/2022 3:28 AM Age: 77 years old Clinical indication: Dyspnea TECHNIQUE: Imaging protocol: Radiologic exam of the chest. Views: 1 view. COMPARISON: CR XR CHEST 2V PA LATERAL 02/12/2022 2:08 PM FINDINGS: Lungs: Diffuse interstitial prominence is present with added density in the right mid to lower lung zone and left base which could be due to atelectasis or infiltrates. Pleural spaces: Stable blunting of left costophrenic angle without pneumothorax or large effusion. Heart/Mediastinum: Enlarged cardiomediastinal silhouette remains, probably not significantly changed when accounting for differences in study technique. Bones/joints: Degenerative changes without acute fracture IMPRESSION: Alveolar and interstitial densities which could represent edema with underlying infiltrates not excluded.? Persistent cardiomegaly.? Follow-up to resolution recommended. Dictated and Authenticated by: Robbin Gonzalez MD. Ordering:YUMIKO Jorgensen MD Radiologic Study #2: Imaging: CT Scan Radiologist's impression: Patient Name: Mehreen Wilson Unit #: [id number] Loc: ER ? Ordering Provider:? Status: REG ER ? Primary Care Provider: Parth Harry M.D. Date of Exam: 10/29/22 Sex: F ? : 1945 Age: 77 ? Exam(s) PROCEDURE INFORMATION: Exam: CT Head Without Contrast Exam date and time: 10/29/2022 4:06 AM Age: 77 years old Clinical indication: Injury or trauma; Fall; Blunt trauma (contusions or hematomas); Consciousness not specified; Injury date: 10/29/22; Injury details: Head trauma on eliquis TECHNIQUE: Imaging protocol: Computed tomography of the head without contrast. Radiation optimization: All CT scans at this facility use at least one of these dose optimization techniques: automated exposure control; mA and/or kV adjustment per patient size (includes targeted exams where dose is matched to clinical indication); or iterative reconstruction. COMPARISON: CTA NECK/CAROTID 11/19/2017 1:23 PM FINDINGS: Brain: Diffuse involutional changes and white matter hypodensities consistent with age. These findings are most likely due to atrophy and small vessel disease. No acute hemorrhage or acute terratorial infarct. Vascular calcifications at the [place]. Cerebral ventricles: No gross venticulomegaly. Paranasal sinuses: No significant opacity or air fluid levels. Mastoid air cells: Mastoids: No significant abnormality. Orbital cavities: No acute abnormality. Bilateral lens replacements next Bones/joints: No acute fracture. Soft tissues: No significant abnormality. Mild periorbital and left frontal soft tissue swelling without large hematoma. IMPRESSION: No acute intracranial abnormality. If concern persists, consider MRI or CTA. Dictated and Authenticated by: Robbin Gonzalez MD. Ordering:YUMIKO Jorgensen MD Ordered By:? CC: ? ECG Data Attestation: I personally reviewed and interpreted this ECG (s) as follows: Prior ECG tracings: available for review Interpretation: Heart rate of 32 Atrial flutter with a 6-1 block HPI General Mode of arrival: EMS. Date/Time Provider Initiated Documentation: 10/29/22 03:02. HPI Narrative: Patient presented to the emergency department after she started having episodes of dizziness after she had her diltiazem increased last week for atrial fibrillation. Patient today woke up and was going to the bathroom dizzy and had a syncopal episode hitting her head. called EMS who brought her to the emergency department. In the EMS they noted that her heart rate was in the 30s but her rhythm showed flutter blood pressure was 80/40 in the ambulance. Here she states that she is dizzy but she is talking does not recall the incident and reports pain in her head. Related Data Home Medications Medication Instructions Recorded Confirmed Bupropion HCl 100 mg PO HS 04/20/17 10/29/22 spironolactone 25 mg tablet 25 mg PO DAILY 04/20/17 10/29/22 apixaban 5 mg tablet (Eliquis) 5 mg PO BID 11/08/17 10/29/22 diltiazem HCl 240 mg 240 mg PO HS 11/08/17 10/29/22 capsule,extended release 24 hr, controlled (DILT-XR) carvedilol 12.5 mg tablet (Coreg) 25 mg PO BID ##0 11/17/17 10/29/22 magnesium oxide 400 mg (241.3 mg 400 mg PO DAILY #30 tabs 11/17/17 10/29/22 magnesium) tablet acetaminophen 650 mg 650 mg PO BID 09/01/21 10/29/22 tablet,extended release (Tylenol Arthritis Pain) atorvastatin 40 mg tablet 40 mg PO QHS 09/01/21 10/29/22 budesonide-formoterol HFA 160 2 puff inhalation BID 09/01/21 10/29/22 mcg-4.5 mcg/actuation aerosol inhaler (Symbicort) calcium carbonate 600 mg calcium 600 mg PO BID 09/01/21 10/29/22 (1,500 mg) tablet clopidogrel 75 mg tablet 75 mg PO DAILY 09/01/21 10/29/22 diphenhydramine HCl 25 mg tablet 25 mg PO .COMPLEX 09/01/21 10/29/22 (Allergy (diphenhydramine)) losartan 50 mg tablet 50 mg PO DAILY 09/01/21 10/29/22 nitroglycerin 0.4 mg sublingual 0.4 mg sublingual Q5M PRN 09/01/21 10/29/22 tablet oxcarbazepine 300 mg tablet 600 mg PO BID 09/01/21 10/29/22 sennosides 8.6 mg tablet (senna) 17.2 mg PO DAILY 09/01/21 10/29/22 duloxetine 20 mg capsule,delayed 20 mg PO DAILY 05/11/22 10/29/22 release (Cymbalta) pantoprazole 20 mg tablet,delayed 40 mg PO DAILY 05/11/22 10/29/22 release Previous Rx's Medication Instructions Recorded carvedilol 12.5 mg tablet (Coreg) 25 mg PO BID ##0 11/17/17 magnesium oxide 400 mg (241.3 mg 400 mg PO DAILY #30 tabs 11/17/17 magnesium) tablet Allergies Allergy/AdvReac Type Severity Reaction Status Date / Time amlodipine besylate Allergy Intermediate Hives Verified 10/29/22 03:19 [From [facility]] amoxicillin Allergy Intermediate Hives Verified 10/29/22 03:19 sulfamethoxazole Allergy Intermediate Hives Verified 10/29/22 03:19 [From ] trimethoprim [From ] Allergy Intermediate Hives Verified 10/29/22 03:19 amiloride AdvReac Intermediate GI Verified 10/29/22 03:19 carbamazepine AdvReac Intermediate palpitation Verified 10/29/22 03:19 s codeine AdvReac Intermediate N/V Verified 10/29/22 03:19 furosemide AdvReac Intermediate Nausea Verified 10/29/22 03:19 benazepril AdvReac Mild cough Verified 10/29/22 03:19 lisinopril AdvReac Mild cough Verified 10/29/22 03:19 General Stated Complaint: Dizzy/Sync Review of Systems All systems reviewed & are unremarkable except as noted in HPI and below Constitutional Constitutional: Reports lethargy and Reports weakness Eyes Eyes: Reports as per HPI ENT Ears, Nose, Mouth, and Throat: Reports system reviewed and no additional complaints, except as documented and Reports as per HPI Cardiovascular Cardiovascular: Reports irregular heart rhythm and Reports dyspnea Respiratory Respiratory: Reports dyspnea Gastrointestinal Gastrointestinal: Reports as per HPI Genitourinary Genitourinary: Reports system reviewed and no additional complaints, except as documented Neurologic Neurologic: Reports system reviewed and no additional complaints, except as documented and Reports weakness Psychiatric Psychiatric: Reports system reviewed and no additional complaints, except as documented PFSH All Active Problems Bradyarrhythmia (Acute) Atrial flutter (Acute) Syncope (Chronic) Atrial flutter (Acute) Depression (Chronic) COPD (chronic obstructive pulmonary disease) (Chronic) CAD (coronary artery disease) (Chronic) Diabetes mellitus (Chronic) Trigeminal neuralgia (Acute) GERD (gastroesophageal reflux disease) (Acute) Hyperlipidemia (Acute) Hypertension (Acute) Atrial flutter with rapid ventricular response (Acute) Obstructive sleep apnea (Acute) Demand ischemia (Acute) Constipation (Acute) Discharge planning issues (Acute) Medical History NSTEMI (non-ST elevated myocardial infarction) Surgical History S/P cholecystectomy S/P hernia repair Family History Other Heart disease Hyperlipidemia Hypertension Social History Smoking/Tobacco Use Status: Never Smoking risk assessment performed?: Yes Alcohol Intake: never Drug use: Never Substance use type: does not use Household members: spouse Number of Children: 3 current occupation: Retired What is your relationship status?: Panel score (0-1 are the most socially isolated patients): 1 Do you feel safe at home: Yes Do you feel safe in your relationship?: Yes Exam Const General: cooperative, healthy appearing, no acute distress and well developed HENMT Head: hematoma left frontal Ears: hearing grossly normal bilaterally General nose exam: external nose normal Face and sinus: normal facial exam Mouth: oral mucosae normal Teeth and gingiva: dentition normal Eyes General: appearance normal, both eyes and all related structures Visual Allison: normal visual allison by confrontation Alignment and Position: alignment normal Periorbital: periorbital findings normal Eyelids: eyelids normal Conjunctivae: conjunctivae normal Sclera: sclerae normal Cornea: corneas normal Pupils: PERRL EOM: EOM intact bilaterally Neck Neck: normal visual inspection, full ROM and no lymphadenopathy Chest Chest: normal inspection of the chest Resp Effort & Inspection: normal respiratory effort and able to speak in complete sentences Auscultation: clear to auscultation bilaterally Cardio Jugular venous pressure: no JVD Rate: bradycardic Rhythm: regular rhythm GI Inspection: normal to inspection Back/Spine/Pelvis Back: no CVA tenderness Cervical Spine: normal cervical lordosis Skin General skin exam: no rashes or lesions noted Neuro General: patient alert, patient awake and patient oriented x3 Extrem General: normal to inspection, full ROM and capillary refill normal Course Patient presented to the emergency department with dizziness after syncopal episode with a heart rate in the high 30s and blood pressure 100/70 EKG shows atrial flutter with a 61 block with a heart rate in around 37. Patient was given glucagon and atropine with improvement of her symptoms Reevaluation(s) Time: 06:34 Reevaluation: Blood pressure now is 137/70 with a heart rate of 50 after glucagon and atropine Vital Signs Vital signs: 142/67 hr 56 Critical Care Time Critical Care Time Critical Care Time: Yes Total Critical Care Time: 40 Attestation: Critical time on this patient was 40 minutes aside from procedures due to impending duration of the cardiovascular system
[2022-10-29 03:24] LABS: Abs Immature Grans 0.05 10^3/uL (0.0-0.06); Absolute Basophil Count 0.02 10^3/uL (0.0-0.2); Absolute Eosinophil Count 0.08 10^3/uL (0.0-0.7); Absolute Lymphocyte Count 1.19 10^3/uL (1.2-3.4); Absolute Monocyte Count 0.49 10^3/uL (0.1-0.8); Absolute Neutrophil Count 7.71 10^3/uL (1.2-6.7); Basophils % 0.2; Eosinophils % 0.8; HCT 32.3 % (36.0-46.0); HGB 10.4 g/dL (11.2-15.7); Immature Grans % 0.5; Lymphocytes % 12.5; MCH 29.4 pg (27.0-33.0); MCHC 32.2 % (32.0-36.0); MCV 91 fL (80-95); MPV 10.3 fL (8.0-11.0); Monocytes % 5.1; Neutrophils % 80.9; Platelet Count 222 10^3/uL (130-400); RBC 3.54 10^6/uL (3.93-5.22); RDW 14.7 % (11.7-14.6); RDW-SD 49.6 fL; WBC 9.54 10^3/uL (4.4-10.8)
[2022-10-29] MEDS: Normal Saline 1,000 ML 1000 ML IV (03:34)
[2022-10-29 03:35] LABS: ALT 17 U/L (14-59); AST 11 U/L (15-37); Albumin 3.3 g/dL (3.4-5.0); Alkaline Phosphatase 100 U/L (46-116); Anion Gap 9.8 mmol/L (3-11); BUN 14 mg/dL (7-18); Bilirubin, Total 0.4 mg/dL (0.2-1.0); CO2 26.2 mmol/L (21.0-32.0); CREATININE 1.1 mg/dL (0.55-1.02); Calcium 8.7 mg/dL (8.5-10.1); Chloride 100 mmol/L (98-107); Estimated GFR 51.75 (mL/min/1.73m2); Glucose 161 mg/dL (74-106); Magnesium 1.7 mg/dL (1.8-2.4); Potassium 4.1 mmol/L (3.5-5.1); Sodium 136 mmol/L (136-145); Total Protein 7.1 g/dL (6.4-8.2); Troponin I < 50 ng/L (<or=60)
[2022-10-29] MEDS: Atropine 1 MG/10 ML SYRINGE 0.5 MG IVP (03:35)
--- NOTE | 2022-10-29 04:04 | NUR.NOTE ---
necklace and ear rings packed in belonging's case with alert necklace.Nursing Note:
[2022-10-29] MEDS: MAGNESIUM SULFATE 1 GM/100 ML BAG IVPB (04:13)
--- NOTE | 2022-10-29 04:18 | DI.VRAD_ITS ---
PROCEDURE INFORMATION: Exam: CT Head Without Contrast Exam date and time: 10/29/2022 4:06 AM Age: 77 years old Clinical indication: Injury or trauma; Fall; Blunt trauma (contusions or hematomas); Consciousness not specified; Injury date: 10/29/22; Injury details: Head trauma on eliquis TECHNIQUE: Imaging protocol: Computed tomography of the head without contrast. Radiation optimization: All CT scans at this facility use at least one of these dose optimization techniques: automated exposure control; mA and/or kV adjustment per patient size (includes targeted exams where dose is matched to clinical indication); or iterative reconstruction. COMPARISON: CTA NECK/CAROTID 11/19/2017 1:23 PM FINDINGS: Brain: Diffuse involutional changes and white matter hypodensities consistent with age. These findings are most likely due to atrophy and small vessel disease. No acute hemorrhage or acute terratorial infarct. Vascular calcifications at the [place]. Cerebral ventricles: No gross venticulomegaly. Paranasal sinuses: No significant opacity or air fluid levels. Mastoid air cells: Mastoids: No significant abnormality. Orbital cavities: No acute abnormality. Bilateral lens replacements next Bones/joints: No acute fracture. Soft tissues: No significant abnormality. Mild periorbital and left frontal soft tissue swelling without large hematoma. IMPRESSION: No acute intracranial abnormality. If concern persists, consider MRI or CTA. Dictated and Authenticated by: Robbin Gonzalez MD. Ordering:YUMIKO Jorgensen MD
[2022-10-29] MEDS: Glucagon 1 MG VIAL 3 MG IVP (04:21)
--- NOTE | 2022-10-29 04:21 | DI.VRAD_ITS ---
PROCEDURE INFORMATION: Exam: XR Chest Exam date and time: 10/29/2022 3:28 AM Age: 77 years old Clinical indication: Dyspnea TECHNIQUE: Imaging protocol: Radiologic exam of the chest. Views: 1 view. COMPARISON: CR XR CHEST 2V PA LATERAL 02/12/2022 2:08 PM FINDINGS: Lungs: Diffuse interstitial prominence is present with added density in the right mid to lower lung zone and left base which could be due to atelectasis or infiltrates. Pleural spaces: Stable blunting of left costophrenic angle without pneumothorax or large effusion. Heart/Mediastinum: Enlarged cardiomediastinal silhouette remains, probably not significantly changed when accounting for differences in study technique. Bones/joints: Degenerative changes without acute fracture IMPRESSION: Alveolar and interstitial densities which could represent edema with underlying infiltrates not excluded. Persistent cardiomegaly. Follow-up to resolution recommended. Dictated and Authenticated by: Robbin Gonzalez MD. Ordering:YUMIKO Jorgensen MD
[2022-10-29] MEDS: Ondansetron 4 MG/2 ML VIAL IVP (04:26)
[2022-10-29] MEDS: Water,Injection,Sterile 10 ML VIAL (04:28)
[2022-10-29 05:11] LABS: Bilirubin Negative (Negative); Blood Trace-intact (Negative); Clarity Clear (Clear); Glucose Negative (Negative); Ketones Trace mg/dL (Negative); Leukocyte Esterase Negative (Negative); Nitrite Negative (Negative); Urobilinogen 0.2 mg/dL (Up to 0.2)
[2022-10-29 05:15] LABS: Bacteria Few HPF (Negative); C & S Indicated? No; Casts Negative LPF (Negative); Crystals Negative HPF (Negative); Epithelial Cells Few HPF (Negative); Mucus Negative (Negative); WBC Negative HPF (0-5)
--- NOTE | 2022-10-29 06:16 | HPE_ITS ---
Date of service: 10/29/22 Time of Service: 06:16 Assessment and Plan Assessment and plan (1) Bradyarrhythmia: Status: Acute Assessment and plan: patient presented to [facility] after syncope and was found to be in atrial flutter with 6:1 AV conduction w/ ventricular rates in the 30's but responded to atrop ine and glucagon. She is admitted to telemetry on med/surg for further monitoring. Her diltiazem XR and carvedilol are being held until her AV conduction has recovered. We will ask Dr. Telles to see her as she is a known patient of Dr. Mckinney and we would very much like her input on her patient's management of her atrial fibrillation and flutter. The patient may need permanent pacer in order to allow her to be rate controlled w/ medications to treat her rapid atrial fibrillation, otherwise she seems intolerant of the additional AV real blockade of using combo of calcium channel and beta blockers together. I have resumed her Plavix for her CAD and her Eliquis for her atrial flutter/atrial fibrillation as her head CT showed no bleed. Professional time spent interviewing and examining patient, discussion of goals of care with hospital team (care management, nursing and consulting professional s) was 60 minutes. (2) Atrial flutter: Status: Acute Assessment and plan: as above. (3) Syncope: Status: Chronic Assessment and plan: d/t her bradyarrhythmia. hold carvedilol and diltiazem today. workup as above (4) COPD (chronic obstructive pulmonary disease): Status: Chronic Assessment and plan: patient is not having any acute exacerbation and she is not on any maintenance medications for COPD. Last PFT on file at [facility] was from 11/04/16 and at that time demonstrated moderately severe obstructive airway w/ significant bronchodilator response. I would recommend updated PFT upon discharge and pulmonary referral as some of her exertional dypsnea may be related to untreated COPD in addition to her CHF and arrhythmias. Also she should be evaluated for [place] (5) CAD (coronary artery disease): Status: Chronic Assessment and plan: patient has hx of prior PCI w/ stent to her CX in 2018. I see no updated stress MPI since 2018. I would recommend follow up stress MPI to evaluate her dyspnea. 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 I will add glycohemoglobin A1c to her morning labs and monitor finger stick glucose levesl BID but not put her on sliding scale for now unless her glucose readings are consistently over 180. Otherwise this should be follow up as outpatient by her PCP. History of Present Illness History of Present Illness Chief Complaint: syncope, dyspnea Narrative: 77 yr old female w/ PMH of atrial fibrillation (HR treated w/ carvediloll and diltiazem XR, anticoagulated w/ Eliquis), CAD (s/p CX stent 2017), HTN, HFPEF (last echo 04/14/22 LVEF 50-55% w/ conc. LVH, normal RV, mild to mod. MR and MAC, no AI or ) who presents to the [facility]. w/ syncope and was found to be in slow atrial flutter w/ ventricular rates 30's w/ 6:1 AV conduction, initial BP was okd 134/115 but then dropped into the high 80's before she was given atropine 0.5 mg glucagon 3 mg IVP before improvement in her AV conduction. Patient had CT head as she had hit her head during the syncope and d/t her being on Elquis and Plavix. CT head noncontrast showed age related involutional changes and white matter hypodensitites but no bleed or infarct. CXR was done and demoonstrated cardiomegaly and alveolar and interstitial densities c/w CHF (new when compared to prior CXR from 02/12/22). Labs were remarkable for low magnesium of 1.7, normal troponin of <50, normal potassium of 4.1, and anemia w/ Hb 10.4 gm. Patient is admitted to med/surg on telemetry for monitoring and adjustment in her rate controlling meds, diuresis and cardiology consultation. Patient states that she has been dyspneic w/ any activity for several months but more recently has had orthopnea. She relates intermittent chest discomfort that she feels is her afib. Review of Systems All systems reviewed & are unremarkable except as noted in HPI and below Constitutional Constitutional: Denies chills and Denies fever(s) Eyes Eyes: Reports system reviewed and no additional complaints, except as documented ENT Ears, Nose, Mouth, and Throat: Reports system reviewed and no additional complaints, except as documented Cardiovascular Cardiovascular: Reports chest pain with activity, Reports irregular heart rhythm, Reports palpitations, Reports dyspnea, Reports dyspnea on exertion and Reports orthopnea Respiratory Respiratory: Denies change in phlegm color, Denies chest congestion, Denies cough, Reports dyspnea and Reports dyspnea on exertion Gastrointestinal Gastrointestinal: Reports system reviewed and no additional complaints, except as documented Genitourinary Genitourinary: Reports system reviewed and no additional complaints, except as documented Musculoskeletal Musculoskeletal: Reports system reviewed and no additional complaints, except as documented Neurologic Neurologic: Reports system reviewed and no additional complaints, except as documented Endocrine Endocrine: Reports palpitations Hematologic/Lymphatic Hematologic/Lymphatic: Reports system reviewed and no additional complaints, except as documented Allergic/Immunologic Allergic/Immunologic: Reports system reviewed and no additional complaints, except as documented PFSH All Active Problems Bradyarrhythmia (Acute) Atrial flutter (Acute) Syncope (Chronic) Atrial flutter (Acute) Depression (Chronic) COPD (chronic obstructive pulmonary disease) (Chronic) CAD (coronary artery disease) (Chronic) Diabetes mellitus (Chronic) Trigeminal neuralgia (Acute) GERD (gastroesophageal reflux disease) (Acute) Hyperlipidemia (Acute) Hypertension (Acute) Atrial flutter with rapid ventricular response (Acute) Obstructive sleep apnea (Acute) Demand ischemia (Acute) Constipation (Acute) Discharge planning issues (Acute) Medical History NSTEMI (non-ST elevated myocardial infarction) Surgical History S/P cholecystectomy S/P hernia repair Family History Other Heart disease Hyperlipidemia Hypertension Social History Smoking/Tobacco Use Status: Never Smoking risk assessment performed?: Yes Alcohol Intake: never Drug use: Never Substance use type: does not use Household members: spouse Number of Children: 3 current occupation: Retired What is your relationship status?: Panel score (0-1 are the most socially isolated patients): 1 Do you feel safe at home: Yes Do you feel safe in your relationship?: Yes Meds Allergies and Home Medications Allergies Allergy/AdvReac Type Severity Reaction Status Date / Time amlodipine besylate Allergy Intermediate Hives Verified 10/29/22 03:19 [From [facility]] amoxicillin Allergy Intermediate Hives Verified 10/29/22 03:19 sulfamethoxazole Allergy Intermediate Hives Verified 10/29/22 03:19 [From [facility]] trimethoprim [From ] Allergy Intermediate Hives Verified 10/29/22 03:19 amiloride AdvReac Intermediate GI Verified 10/29/22 03:19 carbamazepine AdvReac Intermediate palpitation Verified 10/29/22 03:19 s codeine AdvReac Intermediate N/V Verified 10/29/22 03:19 furosemide AdvReac Intermediate Nausea Verified 10/29/22 03:19 benazepril AdvReac Mild cough Verified 10/29/22 03:19 lisinopril AdvReac Mild cough Verified 10/29/22 03:19 Home Medications Medication Instructions Recorded Confirmed Type Bupropion HCl 100 mg PO HS 04/20/17 10/29/22 History spironolactone 25 mg tablet 25 mg PO DAILY 04/20/17 10/29/22 History apixaban 5 mg tablet (Eliquis) 5 mg PO BID 11/08/17 10/29/22 History diltiazem HCl 240 mg 240 mg PO HS 11/08/17 10/29/22 History capsule,extended release 24 hr, controlled (DILT-XR) carvedilol 12.5 mg tablet (Coreg) 25 mg PO BID ##0 11/17/17 10/29/22 Rx magnesium oxide 400 mg (241.3 mg 400 mg PO DAILY #30 tabs 11/17/17 10/29/22 Rx magnesium) tablet acetaminophen 650 mg 650 mg PO BID 09/01/21 10/29/22 History tablet,extended release (Tylenol Arthritis Pain) atorvastatin 40 mg tablet 40 mg PO QHS 09/01/21 10/29/22 History budesonide-formoterol HFA 160 2 puff inhalation BID 09/01/21 10/29/22 History mcg-4.5 mcg/actuation aerosol inhaler (Symbicort) calcium carbonate 600 mg calcium 600 mg PO BID 09/01/21 10/29/22 History (1,500 mg) tablet clopidogrel 75 mg tablet 75 mg PO DAILY 09/01/21 10/29/22 History diphenhydramine HCl 25 mg tablet 25 mg PO .COMPLEX 09/01/21 10/29/22 History (Allergy (diphenhydramine)) losartan 50 mg tablet 50 mg PO DAILY 09/01/21 10/29/22 History nitroglycerin 0.4 mg sublingual 0.4 mg sublingual Q5M PRN 09/01/21 10/29/22 History tablet oxcarbazepine 300 mg tablet 600 mg PO BID 09/01/21 10/29/22 History sennosides 8.6 mg tablet (senna) 17.2 mg PO DAILY 09/01/21 10/29/22 History duloxetine 20 mg capsule,delayed 20 mg PO DAILY 05/11/22 10/29/22 History release (Cymbalta) pantoprazole 20 mg tablet,delayed 40 mg PO DAILY 05/11/22 10/29/22 History release Exam Const General: cooperative and no acute distress Nutritional Appearance: obese Orientation: alert, awake and oriented x3 HENMT Head: contusion left frontal and periorbital ecchymosis (left) Ears: hearing grossly normal bilaterally General nose exam: external nose normal Face and sinus: ecchymosis on the left forehead Mouth: oral mucosae normal Neck Neck: normal visual inspection, full ROM, no lymphadenopathy, no meningeal sig ns, trachea midline, supple and no JVD Carotids: normal carotid upstroke Lymphatic: no lymphadenopathy noted Chest Chest: normal inspection of the chest, normal palpation of entire chest wall and pacemaker (left infraclavicular) Resp Effort & Inspection: normal respiratory effort and able to speak in complete sentences Auscultation: crackles bilaterally in the lower lung hardin and no rubs Percussion: percussion normal Tactile Fremitus: tactile fremitus absent Cardio Jugular venous pressure: no JVD Palpation: normal PMI Rate: bradycardic Rhythm: abnormal rhythm Pulses: normal peripheral pulses GI Inspection: normal to inspection, non-distended and obesity Palpation: soft and no hepatosplenomegaly Percussion: normal to percussion Auscultation: normal bowel sounds Skin General skin exam: ecchymosis (left frontal) Neuro General: patient alert, patient awake, patient oriented x3, tone normal, moves all extremities, no focal motor deficits and CN's II-XI intact bilaterally Extrem General: normal to inspection, full ROM, capillary refill normal, no calf tende rness, edema Laterality: bilateral (trace nonpitting edema bilateral ankles and lower tibia) and pedal edema bilaterally non-pitting and 1+ Psych Appearance: grossly normal and well kempt Mental Status: mental status grossly normal Speech and Movement: speech and movement normal Mood: congruent mood Affect: normal affect Attitude: cooperative Thought Process: normal Thought Content: normal Insight: insight good Judgment: judgment good Results Imaging Chest x-ray: image reviewed EKG: image reviewed Imaging Studies: EXAM: ? CT HEAD WO IMPRESSION: 1. No acute intracranial process.? 2. Mild swelling of the left pleural soft tissues and the left frontal scalp. Labs 10/29/22 03:10 10/29/22 03:10 Labs: Laboratory Results - last 24 hr 10/29/22 10/29/22 10/29/22 03:10 03:10 03:25 WBC 9.54 RBC 3.54 L Hgb 10.4 L Hct 32.3 L MCV 91 MCH 29.4 MCHC 32.2 RDW 14.7 H Plt Count 222 MPV 10.3 Immature Gran % 0.5 Neutrophils % 80.9 Band Neutrophils % Lymphocytes % 12.5 Atypical Lymphs % Monocytes % 5.1 Eosinophils % 0.8 Basophils % 0.2 Metamyelocytes % Myelocytes % Promyelocytes % Other Cells % Nucleated RBC % 0.0 Absolute Neutrophils 7.71 H Absolute Lymphocytes 1.19 L Absolute Monocytes 0.49 Absolute Eosinophils 0.08 Absolute Basophils 0.02 RBC Morphology Polychromasia Hypochromasia Poikilocytosis Basophilic Stippling Anisocytosis Microcytosis Macrocytosis Spherocytes Tear Drop Cells Ovalocytes Stomatocytes [place] Bodies Colton Cells/Echinocytes Acanthocytes (Spur) Schistocytes Sodium 136 Cancelled Potassium 4.1 Cancelled Chloride 100 Cancelled Carbon Dioxide 26.2 Cancelled Anion Gap 9.8 Cancelled BUN 14 Cancelled Creatinine 1.1 H Cancelled Est GFR (CKD-EPI 2020) 51.75 Cancelled Glucose 161 H Cancelled Calcium 8.7 Cancelled Magnesium 1.7 L Cancelled Total Bilirubin 0.4 Cancelled AST 11 L Cancelled ALT 17 Cancelled Alkaline Phosphatase 100 Cancelled Troponin I < 50 Cancelled Total Protein 7.1 Cancelled Albumin 3.3 L Cancelled Urine Color Urine Clarity Urine pH Ur Specific [place] Urine Protein Urine Ketones Urine Blood Urine Nitrite Urine Bilirubin Urine Urobilinogen Ur Leukocyte Esterase Urine RBC Urine WBC Ur Epithelial Cells Urine Crystals Urine Bacteria Urine Casts Urine Mucus Ur Culture Indicated? Urine Glucose 10/29/22 10/29/22 03:25 04:40 WBC Cancelled RBC Cancelled Hgb Cancelled Hct Cancelled MCV Cancelled MCH Cancelled MCHC Cancelled RDW Cancelled Plt Count Cancelled MPV Cancelled Immature Gran % Cancelled Neutrophils % Cancelled Band Neutrophils % Cancelled Lymphocytes % Cancelled Atypical Lymphs % Cancelled Monocytes % Cancelled Eosinophils % Cancelled Basophils % Cancelled Metamyelocytes % Cancelled Myelocytes % Cancelled Promyelocytes % Cancelled Other Cells % Cancelled Nucleated RBC % Cancelled Absolute Neutrophils Cancelled Absolute Lymphocytes Cancelled Absolute Monocytes Cancelled Absolute Eosinophils Cancelled Absolute Basophils Cancelled RBC Morphology Cancelled Polychromasia Cancelled Hypochromasia Cancelled Poikilocytosis Cancelled Basophilic Stippling Cancelled Anisocytosis Cancelled Microcytosis Cancelled Macrocytosis Cancelled Spherocytes Cancelled Tear Drop Cells Cancelled Ovalocytes Cancelled Stomatocytes Cancelled [place] Bodies Cancelled Sigifredo Cells/Echinocytes Cancelled Acanthocytes (Spur) Cancelled Schistocytes Cancelled Sodium Potassium Chloride Carbon Dioxide Anion Gap BUN Creatinine Est GFR (CKD-EPI 2020) Glucose Calcium Magnesium Total Bilirubin AST ALT Alkaline Phosphatase Troponin I Total Protein Albumin Urine Color Yellow Urine Clarity Clear Urine pH 6.0 Ur Specific [place] 1.020 Urine Protein 100 H Urine Ketones Trace H Urine Blood Trace-intact H Urine Nitrite Negative Urine Bilirubin Negative Urine Urobilinogen 0.2 Ur Leukocyte Esterase Negative Urine RBC 3-5 H Urine WBC Negative Ur Epithelial Cells Few Urine Crystals Negative Urine Bacteria Few Urine Casts Negative Urine Mucus Negative Ur Culture Indicated? No Urine Glucose Negative Last Vital Signs Temp 36.4 C 10/29/22 03:10 Pulse 56 L 10/29/22 06:01 Resp 16 10/29/22 06:01 BP 142/67 H 10/29/22 06:01 Pulse Ox 98 10/29/22 06:01 Time Spent Time spent with Patient: 55-74 minutes Time was spent: preparing to see the patient(eg.review tests), obtaining and/or reviewing separately otained hiistory, ordering medications,tests, procedures, referring, communicating with other health senior care provider, indepentently interpreting results, counseling the patient and care coordination
[2022-10-29 06:44] LABS: Lab Add On Test BNP
[2022-10-29 07:10] LABS: Troponin I < 50 ng/L (<or=60)
[2022-10-29 07:12] LABS: NT-proBNP 968 pg/mL (<300)
[2022-10-29 09:16] LABS: Lab Add On Test DONE
[2022-10-29] MEDS: Calcium Carbonate 1.5 GM TAB PO ×2 (09:31→21:22)
[2022-10-29] MEDS: Clopidogrel 75 MG TAB PO (09:32)
[2022-10-29] MEDS: DULoxetine 20 MG CAP PO (09:32)
[2022-10-29] MEDS: Apixaban 5 MG TAB PO ×2 (09:32→21:21)
[2022-10-29] MEDS: Pantoprazole 40 MG TABCR PO (09:32)
[2022-10-29] MEDS: Losartan 50 MG TAB PO (09:32)
[2022-10-29] MEDS: Magnesium Oxide 400 MG TAB PO ×3 (09:32→21:20)
[2022-10-29 09:36] LABS: Hemoglobin A1C 6.4 % (<5.7)
[2022-10-29] MEDS: Acetaminophen 325 MG TAB PO ×2 (09:46→21:35)
[2022-10-29] MEDS: Bumetanide 1 MG/4 ML VIAL IVP (09:47)
[2022-10-29] MEDS: Spironolactone 25 MG TAB PO (09:49)
[2022-10-29 10:02] LABS: Troponin I < 50 ng/L (<or=60)
[2022-10-29] MEDS: Budesonide/Formoterol 160/4.5 6 GM 60 PUFF INH IH ×2 (10:59→20:14)
[2022-10-29] MEDS: OXcarbazepine 150 MG TAB 600 MG PO ×2 (11:11→21:19)
--- NOTE | 2022-10-29 12:16 | W.CARDCONSUL ---
Date of service: 10/29/22 Time of Service: 12:16 Assessment and Plan Assessment and plan (1) Atrial flutter: Status: Acute Assessment and plan: Patient has persistent atrial flutter. Her heart rate is improved with holding her medication. Doses of rate control medication need to be determined prior to discharge. There is currently no indication for pacemaker (2) CAD (coronary artery disease): Status: Chronic Assessment and plan: Remote circumflex stent, no current evidence of myocardial necrosis (3) Obstructive sleep apnea: Status: Acute Assessment and plan: I suspect the patient has obesity/hypoventilation. She was encouraged to continue using CPAP at discharge (4) Diastolic heart failure: Status: Acute Assessment and plan: By history it sounds like the patient's major symptoms of that diastolic heart failure with orthopnea and may be PND or going on for weeks. Her described elevated heart rate sounds reactive. Efforts at diuresis are recommended. Likely she will need maintenance diuretic therapy History of Present Illness History of Present Illness Chief Complaint: Syncope Narrative: This is a 77-year-old woman with permanent atrial flutter, morbid obesity, sleep apnea hypertension who presented to the hospital after she fell and had a head injury last night. Patient has been treated with diltiazem and Coreg long-term for rate control, Eliquis for stroke prevention. Last several months she has been experiencing difficulty breathing at night such that she cannot sleep. She feels short of breath, that her heart is racing and it can take hours for her to feel better. This is making her feel exhausted. She has been compliant with her CPAP but cannot wear it when she starts to get dyspneic, has to take it off. About a week ago she saw her primary care provider and because of described symptoms was prescribed higher doses of diltiazem. She said this made her feel sleepy and she only took it for 2 days. Last night she went to the bathroom felt flushed and was trying to get a cold washcloth when she found herself on the floor. She does not know what happened. In the emergency room she was found to be in atrial flutter, ventricular rate approximately 30. She has been admitted to the hospital and her rate control medications have been omitted. She has also been treated with diuretics for presumptive diastolic heart failure PFSH All Active Problems (Updated 10/29/22 @ 12:23 by Jyoti Telles MD) Diastolic heart failure (Acute) Bradyarrhythmia (Acute) Atrial flutter (Acute) Syncope (Chronic) Atrial flutter (Acute) Depression (Chronic) COPD (chronic obstructive pulmonary disease) (Chronic) CAD (coronary artery disease) (Chronic) Diabetes mellitus (Chronic) Trigeminal neuralgia (Acute) GERD (gastroesophageal reflux disease) (Acute) Hyperlipidemia (Acute) Hypertension (Acute) Atrial flutter with rapid ventricular response (Acute) Obstructive sleep apnea (Acute) Demand ischemia (Acute) Constipation (Acute) Discharge planning issues (Acute) Medical History NSTEMI (non-ST elevated myocardial infarction) Surgical History S/P cholecystectomy S/P hernia repair Family History Other Heart disease Hyperlipidemia Hypertension Social History Smoking/Tobacco Use Status: Never Smoking risk assessment performed?: Yes Alcohol Intake: never Drug use: Never Substance use type: does not use Household members: spouse Number of Children: 3 current occupation: Retired What is your relationship status?: Panel score (0-1 are the most socially isolated patients): 1 Do you feel safe at home: Yes Do you feel safe in your relationship?: Yes Exam Const Other: Morbidly obese woman not in acute distress, good historian HENAL Other: Bruising Neck Other: Unable to assess JVP carotid pulsations are grossly normal Resp Auscultation: clear to auscultation bilaterally Cardio Other: Irregular 2/6 systolic murmur Skin Other: Warm and dry Extrem Other: Extremities are fairly large, not specifically edematous Results Last Vital Signs Temp 35.9 C L 10/29/22 12:13 Pulse 75 10/29/22 12:13 Resp 18 10/29/22 12:13 BP 136/83 10/29/22 12:13 Pulse Ox 98 10/29/22 12:13 Labs 10/29/22 03:10 10/29/22 03:10 Labs: Laboratory Results - last 24 hr 10/29/22 10/29/22 10/29/22 03:10 03:10 03:25 WBC 9.54 RBC 3.54 L Hgb 10.4 L Hct 32.3 L MCV 91 MCH 29.4 MCHC 32.2 RDW 14.7 H Plt Count 222 MPV 10.3 Immature Gran % 0.5 Neutrophils % 80.9 Band Neutrophils % Lymphocytes % 12.5 Atypical Lymphs % Monocytes % 5.1 Eosinophils % 0.8 Basophils % 0.2 Metamyelocytes % Myelocytes % Promyelocytes % Other Cells % Nucleated RBC % 0.0 Absolute Neutrophils 7.71 H Absolute Lymphocytes 1.19 L Absolute Monocytes 0.49 Absolute Eosinophils 0.08 Absolute Basophils 0.02 RBC Morphology Polychromasia Hypochromasia Poikilocytosis Basophilic Stippling Anisocytosis Microcytosis Macrocytosis Spherocytes Tear Drop Cells Ovalocytes Stomatocytes Jaimes-Rimini Bodies [place] Cells/Echinocytes Acanthocytes (Spur) Schistocytes Sodium 136 Cancelled Potassium 4.1 Cancelled Chloride 100 Cancelled Carbon Dioxide 26.2 Cancelled Anion Gap 9.8 Cancelled BUN 14 Cancelled Creatinine 1.1 H Cancelled Est GFR (CKD-EPI 2020) 51.75 Cancelled Glucose 161 H Cancelled Hemoglobin A1c Calcium 8.7 Cancelled Magnesium 1.7 L Cancelled Total Bilirubin 0.4 Cancelled AST 11 L Cancelled ALT 17 Cancelled Alkaline Phosphatase 100 Cancelled Troponin I < 50 Cancelled NT-Pro-B Natriuret Pep Total Protein 7.1 Cancelled Albumin 3.3 L Cancelled Urine Color Urine Clarity Urine pH Ur Specific [place] Urine Protein Urine Ketones Urine Blood Urine Nitrite Urine Bilirubin Urine Urobilinogen Ur Leukocyte Esterase Urine RBC Urine WBC Ur Epithelial Cells Urine Crystals Urine Bacteria Urine Casts Urine Mucus Ur Culture Indicated? Urine Glucose Add-On Test Request 10/29/22 10/29/22 10/29/22 03:25 04:11 04:11 WBC Cancelled RBC Cancelled Hgb Cancelled Hct Cancelled MCV Cancelled MCH Cancelled MCHC Cancelled RDW Cancelled Plt Count Cancelled MPV Cancelled Immature Gran % Cancelled Neutrophils % Cancelled Band Neutrophils % Cancelled Lymphocytes % Cancelled Atypical Lymphs % Cancelled Monocytes % Cancelled Eosinophils % Cancelled Basophils % Cancelled Metamyelocytes % Cancelled Myelocytes % Cancelled Promyelocytes % Cancelled Other Cells % Cancelled Nucleated RBC % Cancelled Absolute Neutrophils Cancelled Absolute Lymphocytes Cancelled Absolute Monocytes Cancelled Absolute Eosinophils Cancelled Absolute Basophils Cancelled RBC Morphology Cancelled Polychromasia Cancelled Hypochromasia Cancelled Poikilocytosis Cancelled Basophilic Stippling Cancelled Anisocytosis Cancelled Microcytosis Cancelled Macrocytosis Cancelled Spherocytes Cancelled Tear Drop Cells Cancelled Ovalocytes Cancelled Stomatocytes Cancelled Jaimes-Rimini Bodies Cancelled Sigifredo Cells/Echinocytes Cancelled Acanthocytes (Spur) Cancelled Schistocytes Cancelled Sodium Potassium Chloride Carbon Dioxide Anion Gap BUN Creatinine Est GFR (CKD-EPI 2020) Glucose Hemoglobin A1c 6.4 H Calcium Magnesium Total Bilirubin AST ALT Alkaline Phosphatase Troponin I NT-Pro-B Natriuret Pep Total Protein Albumin Urine Color Urine Clarity Urine pH Ur Specific [place] Urine Protein Urine Ketones Urine Blood Urine Nitrite Urine Bilirubin Urine Urobilinogen Ur Leukocyte Esterase Urine RBC Urine WBC Ur Epithelial Cells Urine Crystals Urine Bacteria Urine Casts Urine Mucus Ur Culture Indicated? Urine Glucose Add-On Test Request DONE 10/29/22 10/29/22 10/29/22 04:40 05:51 06:07 WBC RBC Hgb Hct MCV MCH MCHC RDW Plt Count MPV Immature Gran % Neutrophils % Band Neutrophils % Lymphocytes % Atypical Lymphs % Monocytes % Eosinophils % Basophils % Metamyelocytes % Myelocytes % Promyelocytes % Other Cells % Nucleated RBC % Absolute Neutrophils Absolute Lymphocytes Absolute Monocytes Absolute Eosinophils Absolute Basophils RBC Morphology Polychromasia Hypochromasia Poikilocytosis Basophilic Stippling Anisocytosis Microcytosis Macrocytosis Spherocytes Tear Drop Cells Ovalocytes Stomatocytes Jaimes-Rimini Bodies [place] Cells/Echinocytes Acanthocytes (Spur) Schistocytes Sodium Potassium Chloride Carbon Dioxide Anion Gap BUN Creatinine Est GFR (CKD-EPI 2020) Glucose Hemoglobin A1c Calcium Magnesium Cancelled Total Bilirubin AST ALT Alkaline Phosphatase Troponin I < 50 Cancelled NT-Pro-B Natriuret Pep Total Protein Albumin Urine Color Yellow Urine Clarity Clear Urine pH 6.0 Ur Specific [place] 1.020 Urine Protein 100 H Urine Ketones Trace H Urine Blood Trace-intact H Urine Nitrite Negative Urine Bilirubin Negative Urine Urobilinogen 0.2 Ur Leukocyte Esterase Negative Urine RBC 3-5 H Urine WBC Negative Ur Epithelial Cells Few Urine Crystals Negative Urine Bacteria Few Urine Casts Negative Urine Mucus Negative Ur Culture Indicated? No Urine Glucose Negative Add-On Test Request 10/29/22 10/29/22 10/29/22 06:20 06:20 06:25 WBC RBC Hgb Hct MCV MCH MCHC RDW Plt Count MPV Immature Gran % Neutrophils % Band Neutrophils % Lymphocytes % Atypical Lymphs % Monocytes % Eosinophils % Basophils % Metamyelocytes % Myelocytes % Promyelocytes % Other Cells % Nucleated RBC % Absolute Neutrophils Absolute Lymphocytes Absolute Monocytes Absolute Eosinophils Absolute Basophils RBC Morphology Polychromasia Hypochromasia Poikilocytosis Basophilic Stippling Anisocytosis Microcytosis Macrocytosis Spherocytes Tear Drop Cells Ovalocytes Stomatocytes Jaimes-Rimini Bodies Sigifredo Cells/Echinocytes Acanthocytes (Spur) Schistocytes Sodium Potassium Chloride Carbon Dioxide Anion Gap BUN Creatinine Est GFR (CKD-EPI 2020) Glucose Hemoglobin A1c Calcium Magnesium Total Bilirubin AST ALT Alkaline Phosphatase Troponin I Cancelled NT-Pro-B Natriuret Pep 968 H Total Protein Albumin Urine Color Urine Clarity Urine pH Ur Specific [place] Urine Protein Urine Ketones Urine Blood Urine Nitrite Urine Bilirubin Urine Urobilinogen Ur Leukocyte Esterase Urine RBC Urine WBC Ur Epithelial Cells Urine Crystals Urine Bacteria Urine Casts Urine Mucus Ur Culture Indicated? Urine Glucose Add-On Test Request [facility] 10/29/22 10/29/22 07:22 09:25 WBC RBC Hgb Hct MCV MCH MCHC RDW Plt Count MPV Immature Gran % Neutrophils % Band Neutrophils % Lymphocytes % Atypical Lymphs % Monocytes % Eosinophils % Basophils % Metamyelocytes % Myelocytes % Promyelocytes % Other Cells % Nucleated RBC % Absolute Neutrophils Absolute Lymphocytes Absolute Monocytes Absolute Eosinophils Absolute Basophils RBC Morphology Polychromasia Hypochromasia Poikilocytosis Basophilic Stippling Anisocytosis Microcytosis Macrocytosis Spherocytes Tear Drop Cells Ovalocytes Stomatocytes Jaimes-Rimini Bodies Sigifredo Cells/Echinocytes Acanthocytes (Spur) Schistocytes Sodium Potassium Chloride Carbon Dioxide Anion Gap BUN Creatinine Est GFR (CKD-EPI 2020) Glucose Hemoglobin A1c Calcium Magnesium Total Bilirubin AST ALT Alkaline Phosphatase Troponin I Cancelled < 50 NT-Pro-B Natriuret Pep Total Protein Albumin Urine Color Urine Clarity Urine pH Ur Specific [place] Urine Protein Urine Ketones Urine Blood Urine Nitrite Urine Bilirubin Urine Urobilinogen Ur Leukocyte Esterase Urine RBC Urine WBC Ur Epithelial Cells Urine Crystals Urine Bacteria Urine Casts Urine Mucus Ur Culture Indicated? Urine Glucose Add-On Test Request
[2022-10-29] MEDS: Normal Saline Flush 10 ML SYR IVP ×3 (17:09→21:54)
[2022-10-29] MEDS: Bumetanide 1 MG/4 ML VIAL 0.5 MG IVP (17:51)
[2022-10-29] MEDS: Torsemide 20 MG TAB PO (17:52)
[2022-10-29] MEDS: Atorvastatin 40 MG TAB PO (21:18)
[2022-10-29] MEDS: buPROPion-CR 100 MG TABCR PO (21:18)
[2022-10-29] MEDS: Docusate Sodium 100 MG CAP PO (21:34)
[2022-10-30] VITALS (9 sets, daily range): BP systolic 117–155; BP diastolic 72–91; PULSE 16–113; RESP 16–20; TEMP 36.3–37.4; O2SAT 92–99
[2022-10-30 07:24] LABS: Abs Immature Grans 0.02 10^3/uL (0.0-0.06); Absolute Basophil Count 0.02 10^3/uL (0.0-0.2); Absolute Lymphocyte Count 1.36 10^3/uL (1.2-3.4); Absolute Monocyte Count 0.53 10^3/uL (0.1-0.8); Absolute Neutrophil Count 4.03 10^3/uL (1.2-6.7); Basophils % 0.3; Eosinophils % 1.7; HCT 32.3 % (36.0-46.0); HGB 10.1 g/dL (11.2-15.7); Immature Grans % 0.3; Lymphocytes % 22.4; MCH 28.7 pg (27.0-33.0); MCHC 31.3 % (32.0-36.0); MCV 92 fL (80-95); MPV 10.3 fL (8.0-11.0); Monocytes % 8.7; Neutrophils % 66.6; Platelet Count 196 10^3/uL (130-400); RBC 3.52 10^6/uL (3.93-5.22); RDW 14.8 % (11.7-14.6); RDW-SD 49.6 fL; WBC 6.06 10^3/uL (4.4-10.8)
[2022-10-30 07:28] LABS: Anion Gap 10.2 mmol/L (3-11); BUN 15 mg/dL (7-18); CO2 29.8 mmol/L (21.0-32.0); CREATININE 0.7 mg/dL (0.55-1.02); Calcium 8.8 mg/dL (8.5-10.1); Chloride 99 mmol/L (98-107); Estimated GFR 89.02 (mL/min/1.73m2); Glucose 102 mg/dL (74-106); Magnesium 1.7 mg/dL (1.8-2.4); Potassium 3.8 mmol/L (3.5-5.1); Sodium 139 mmol/L (136-145)
[2022-10-30] MEDS: Pantoprazole 40 MG TABCR PO (07:40)
[2022-10-30] MEDS: Budesonide/Formoterol 160/4.5 6 GM 60 PUFF INH IH ×2 (08:14→19:45)
[2022-10-30] MEDS: OXcarbazepine 150 MG TAB 600 MG PO (08:15)
[2022-10-30] MEDS: Apixaban 5 MG TAB PO ×2 (08:16→19:59)
[2022-10-30] MEDS: DULoxetine 20 MG CAP PO (08:17)
[2022-10-30] MEDS: Carvedilol 12.5 MG TAB PO ×3 (08:17→19:59)
[2022-10-30] MEDS: Calcium Carbonate 1.5 GM TAB PO ×2 (08:17→19:59)
[2022-10-30] MEDS: Magnesium Oxide 400 MG TAB PO ×4 (08:17→19:58)
[2022-10-30] MEDS: Clopidogrel 75 MG TAB PO (08:18)
[2022-10-30] MEDS: Losartan 50 MG TAB PO (08:25)
[2022-10-30] MEDS: Spironolactone 25 MG TAB PO (08:25)
--- NOTE | 2022-10-30 09:23 | INITIAL_ITS ---
Care Management Initial Assmt Initial Assessment REASON FOR HOSPITALIZATION:: atrial flutter PREVIOUS FUNCTIONAL STATUS/SOCIAL/FAMILY SUPPORTS:: Mehreen lives with her in a log cabin he built in [place]. The couple has 3 children, 15 grandchildren and 15 great grandchildren. Brandon uses a cane and a walker for ambulation as needed. She is retired but worked at many different jobs, most of which involved cooking. 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 She is independent with ADLs and does not receive any community services. her hiusband is [facility] to [facility] and he does receive services, including housekeeping, which she appreciates. CURRENT FUNCTIONAL STATUS:: Brandon was sitting up in bed when CM met with her. She was open to conversation and engaged easily with CM. brandon talked about her family and all of the children and grandchildren. 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 She stated that she does not have the energy or the financial resources to entertain on that scale. ADVANCE DIRECTIVES:: on file . Elfego PALACOI Has patient been provided with info about the portal/API?: Yes Did the patient sign up for the portal?: No CODE STATUS:: Full Code INSURANCE COVERAGE / FINANCIAL ISSUES:: Medicare [employer] CURRENT HOME/COMMUNITY SERVICES/EQUIPMENT:: has a walker and a cane PRIMARY CARE PHYSICIAN:: Parth Harry POTENTIAL DISCHARGE NEEDS:: follow up with PCP and Cardiology PATIENT/FAMILY EDUCATION NEEDS:: Review of discharge instructions, limitations, activity, follow up plan, discuss [employer] Me [employer] TRANSPORTATION:: via private vehicle with family PLAN:: Anticipate Mehreen will be discharged home when medically cleared by provider. She will follow up with her PCP and Cardiology and transport with alpa. CM will continue to follow and assess for discharge needs. PFSH All Active Problems (Updated 10/29/22 @ 12:23 by Jyoti Telles MD) Diastolic heart failure (Acute) Bradyarrhythmia (Acute) Atrial flutter (Acute) Syncope (Chronic) Atrial flutter (Acute) Depression (Chronic) COPD (chronic obstructive pulmonary disease) (Chronic) CAD (coronary artery disease) (Chronic) Diabetes mellitus (Chronic) Trigeminal neuralgia (Acute) GERD (gastroesophageal reflux disease) (Acute) Hyperlipidemia (Acute) Hypertension (Acute) Atrial flutter with rapid ventricular response (Acute) Obstructive sleep apnea (Acute) Demand ischemia (Acute) Constipation (Acute) Discharge planning issues (Acute) Medical History NSTEMI (non-ST elevated myocardial infarction) Surgical History S/P cholecystectomy S/P hernia repair Family History Other Heart disease Hyperlipidemia Hypertension Social History Smoking/Tobacco Use Status: Never Smoking risk assessment performed?: Yes Alcohol Intake: never Drug use: Never Substance use type: does not use Household members: spouse Number of Children: 3 current occupation: Retired What is your relationship status?: Panel score (0-1 are the most socially isolated patients): 1 Do you feel safe at home: Yes Do you feel safe in your relationship?: Yes
--- NOTE | 2022-10-30 12:31 | PGE_ITS ---
Date of Service Date of service: 10/30/22 Time of Service: 12:32 Assessment and Plan Assessment and plan (1) Bradyarrhythmia: Status: Acute Assessment and plan: patient presented to [facility] after syncope and was found to be in atrial flutter with 6:1 AV conduction w/ ventricular rates in the 30's but responded to atropine and glucagon. She is admitted to telemetry on med/surg for further monitoring. Her diltiazem XR and carvedilol were held; now carvedilol restarted. Dr. Telles consult appreciated. (2) Atrial flutter: Status: Acute Assessment and plan: as above. (3) Syncope: Status: Chronic Assessment and plan: d/t her bradyarrhythmia. hold carvedilol and diltiazem today. workup as above (4) COPD (chronic obstructive pulmonary disease): Status: Chronic Assessment and plan: Not in acute exacerbation and she is not on any maintenance medications for COPD. Last PFT on file at [facility] was from 11/04/16 and at that time demonstrated moderately severe obstructive airway w/ significant bronchodilator response. I would recommend updated PFT upon discharge and pulmonary referral as some of her exertional dypsnea may be related to untreated COPD in addition to her CHF and arrhythmias. Also she should be evaluated for [place] (5) CAD (coronary artery disease): Status: Chronic Assessment and plan: patient has hx of prior PCI w/ stent to her CX in 2018. I see no updated stress MPI since 2018. (6) Diabetes mellitus: Status: Chronic Assessment and plan: Again, similar to her COPD dx, she is not actively on medications for her DM. A1c 6.4. Subjective Subjective Patient reports: no new complaints and afebrile; denies nausea or shortness of breath Exam Narrative Exam Narrative: Sitting in chair eating breakfast. Const General: cooperative and no acute distress Nutritional Appearance: obese Orientation: alert, awake and oriented x3 HENMT Head: contusion left frontal and periorbital ecchymosis (left) Ears: hearing grossly normal bilaterally Face and sinus: ecchymosis on the left forehead Mouth: oral mucosae normal Eyes Sclera: sclerae normal Neck Neck: normal visual inspection, full ROM, no lymphadenopathy, no meningeal signs, trachea midline, supple and no JVD Carotids: normal carotid upstroke Lymphatic: no lymphadenopathy noted Chest Chest: normal inspection of the chest, normal palpation of entire chest wall and pacemaker (left infraclavicular) Resp Effort & Inspection: normal respiratory effort and able to speak in complete sentences Auscultation: clear to auscultation bilaterally Cardio Jugular venous pressure: no JVD Palpation: normal PMI Rate: tachycardic Rhythm: abnormal rhythm Pulses: normal peripheral pulses GI Inspection: normal to inspection, non-distended and obesity Palpation: soft and no hepatosplenomegaly Percussion: normal to percussion Auscultation: normal bowel sounds Skin General skin exam: ecchymosis (left frontal) Neuro General: patient alert, patient awake, patient oriented x3, moves all extremities and no focal motor deficits Cranial Nerves: facial strength normal Extrem General: normal to inspection, no calf tenderness and edema Laterality: bilateral (trace nonpitting edema bilateral ankles and lower tibia) Psych Appearance: grossly normal and well kempt Mental Status: mental status grossly normal Speech and Movement: speech and movement normal Mood: congruent mood Affect: normal affect Attitude: cooperative Thought Process: normal Thought Content: normal Insight: insight good Judgment: judgment good Objective Last Vital Signs Temp 36.8 C 10/30/22 11:20 Pulse 16 L 10/30/22 11:20 Resp 16 10/30/22 11:20 BP 120/78 10/30/22 11:20 Pulse Ox 96 10/30/22 11:20 Laboratory Results - last 24 hr 10/30/22 10/30/22 06:50 06:50 WBC 6.06 RBC 3.52 L Hgb 10.1 L Hct 32.3 L MCV 92 MCH 28.7 MCHC 31.3 L RDW 14.8 H Plt Count 196 MPV 10.3 Immature Gran % 0.3 Neutrophils % 66.6 Lymphocytes % 22.4 Monocytes % 8.7 Eosinophils % 1.7 Basophils % 0.3 Nucleated RBC % 0.0 Absolute Neutrophils 4.03 Absolute Lymphocytes 1.36 Absolute Monocytes 0.53 Absolute Eosinophils 0.10 Absolute Basophils 0.02 Sodium 139 Potassium 3.8 Chloride 99 Carbon Dioxide 29.8 Anion Gap 10.2 BUN 15 Creatinine 0.7 Est GFR (CKD-EPI 2020) 89.02 Glucose 102 Calcium 8.8 Magnesium 1.7 L Time Spent with Patient Time Spent with Patient: 25-34 minutes Time was spent: preparing to see the patient(eg.review tests), ordering medications,tests, procedures, referring, communicating with other health adult care provider and indepentently interpreting results
[2022-10-30] MEDS: Senna TAB 2 TAB PO (17:05)
[2022-10-30] MEDS: Acetaminophen 325 MG TAB PO ×2 (17:07→19:58)
[2022-10-30] MEDS: Atorvastatin 40 MG TAB PO (21:28)
[2022-10-30] MEDS: buPROPion-CR 100 MG TABCR PO (21:28)
[2022-10-30] MEDS: OXcarbazepine 150 MG TAB (21:29)
[2022-10-31] VITALS (9 sets, daily range): BP systolic 129–170; BP diastolic 76–100; PULSE 64–109; RESP 18–22; TEMP 35.9–37; O2SAT 94–98
--- NOTE | 2022-10-31 | DI.RAD_ITS ---
Exam(s) XR PORTABLE CHEST AP EXAM: XR PORTABLE CHEST AP CLINICAL HISTORY: aflutter with RVR, chest congestion. TECHNIQUE: 2D digital imaging was performed of the chest. One image was obtained. An AP view was ob tained. COMPARISON: CR,XR XR PORTABLE CHEST AP from 10/29/2022 FINDINGS: MEDIASTINUM: Normal. HEART: Cardiomegaly. PULMONARY VASCULATURE: Normal. LUNGS: There is an infiltrate in the medial aspect of the right lung base with air bronchograms. PLEURAL SPACE: No pleural effusion or pneumothorax. BONE:Within normal limits for the patient's age. OTHER FINDINGS:Normal. IMPRESSION: Right basilar infiltrate which may represent pneumonia. Atelectasis cannot be excluded. DATA REPOSITORY: RADIATION DOSE DELIVERED:
[2022-10-31 07:36] LABS: Anion Gap 5.7 mmol/L (3-11); BUN 16 mg/dL (7-18); CO2 32.3 mmol/L (21.0-32.0); CREATININE 0.7 mg/dL (0.55-1.02); Calcium 9.2 mg/dL (8.5-10.1); Chloride 97 mmol/L (98-107); Estimated GFR 89.02 (mL/min/1.73m2); Glucose 100 mg/dL (74-106); Potassium 4.3 mmol/L (3.5-5.1); Sodium 135 mmol/L (136-145)
[2022-10-31] MEDS: Losartan 50 MG TAB PO (08:02)
[2022-10-31] MEDS: Pantoprazole 40 MG TABCR PO (08:02)
[2022-10-31] MEDS: Carvedilol 12.5 MG TAB PO (08:02)
[2022-10-31] MEDS: Spironolactone 25 MG TAB PO (08:02)
[2022-10-31] MEDS: Apixaban 5 MG TAB PO ×2 (08:02→21:05)
[2022-10-31] MEDS: Calcium Carbonate 1.5 GM TAB PO ×2 (08:02→21:05)
[2022-10-31] MEDS: Magnesium Oxide 400 MG TAB PO ×2 (08:02→21:05)
[2022-10-31] MEDS: Clopidogrel 75 MG TAB PO (08:02)
[2022-10-31] MEDS: Torsemide 20 MG TAB PO (08:02)
[2022-10-31] MEDS: DULoxetine 20 MG CAP PO (08:03)
[2022-10-31] MEDS: Acetaminophen 325 MG TAB PO ×2 (08:06→18:14)
[2022-10-31] MEDS: OXcarbazepine 150 MG TAB 600 MG PO ×2 (08:36→21:05)
[2022-10-31] MEDS: Budesonide/Formoterol 160/4.5 6 GM 60 PUFF INH IH ×2 (09:18→19:25)
--- NOTE | 2022-10-31 09:37 | DI.VRAD_ITS ---
PROCEDURE INFORMATION: Exam: XR Chest Exam date and time: 10/31/2022 8:25 AM Age: 77 years old Clinical indication: Other: Aflutter with rvr, chest congestion. TECHNIQUE: Imaging protocol: Radiologic exam of the chest. Views: 1 view. COMPARISON: CR XR PORTABLE CHEST AP 10/29/2022 3:28 AM FINDINGS: Lungs: Opacity in the right base may represent atelectasis or pneumonia.. Pleural spaces: Unremarkable. No pleural effusion. No pneumothorax. Heart/Mediastinum: Cardiomegaly Bones/joints: Unremarkable. IMPRESSION: Opacity in the right base may represent atelectasis or pneumonia.. Dictated and Authenticated by: Bee Solis MD. Ordering:ZITA Siegel MD
--- NOTE | 2022-10-31 12:51 | RESPIRATORY ---
Rt check out patients personal home CPAP device, patient uses an [id number] Auto-set with settings of min 9/max 16 on RA. Her DME is [facility] and she uses a ResMed Rebolledo FX Nasal Pillow Size XS. RT found device to be in great working condition and no issues with use in hospital.
--- NOTE | 2022-10-31 15:39 | W.PM.PROGNOT ---
Date of Service Date of service: 10/31/22 Time of Service: 15:40 Assessment and Plan Assessment and plan (1) Bradyarrhythmia: Status: Acute Assessment and plan: patient presented to [facility] after syncope and was found to be in atrial flutter with 6:1 AV conduction w/ ventricular rates in the 30's but responded to atropine and glucagon. She is admitted to telemetry on med/surg for further monitoring. Her diltiazem XR and carvedilol were held; now carvedilol restarted. Dr. Telles consult appreciated. HR overnight mostly in the 70's. Will continue to monitor today and overnight with hope of d/c tomorrow. (2) Atrial flutter: Status: Acute Assessment and plan: as above. (3) Syncope: Status: Chronic Assessment and plan: d/t her bradyarrhythmia. Reintroduced carvedilol and will now continue at her home dose of 25mg BID. Cont to hold CCB. (4) COPD (chronic obstructive pulmonary disease): Status: Chronic Assessment and plan: Not in acute exacerbation and she is not on any maintenance medications for COPD. Last PFT on file at [facility] was from 11/04/16 and at that time demonstrated moderately severe obstructive airway w/ significant bronchodilator response. I would recommend updated PFT upon discharge and pulmonary referral as some of her exertional dypsnea may be related to untreated COPD in addition to her CHF and arrhythmias. Also she should be evaluated for [place] (5) CAD (coronary artery disease): Status: Chronic Assessment and plan: patient has hx of prior PCI w/ stent to her CX in 2018. No updated stress MPI since 2018 in chart. (6) Diabetes mellitus: Status: Chronic Assessment and plan: Again, similar to her COPD dx, she is not actively on medications for her DM. A1c 6.4. Subjective Subjective Patient reports: no new complaints, feels better and afebrile; denies shortness of breath Interval history since last seen: Nursing noted coarse breath sounds this AM. Exam Narrative Exam Narrative: Sitting in chair eating breakfast. Const General: cooperative and no acute distress Nutritional Appearance: obese Orientation: alert, awake and oriented x3 HENMT Head: contusion left frontal and periorbital ecchymosis (left) Ears: hearing grossly normal bilaterally Face and sinus: ecchymosis on the left forehead Mouth: oral mucosae normal Eyes Sclera: sclerae normal Neck Neck: normal visual inspection, full ROM, no lymphadenopathy, no meningeal signs, trachea midline, supple and no JVD Carotids: normal carotid upstroke Lymphatic: no lymphadenopathy noted Resp Effort & Inspection: normal respiratory effort and able to speak in complete sentences Auscultation: clear to auscultation bilaterally Cardio Jugular venous pressure: no JVD Palpation: normal PMI Rate: regular rate Rhythm: abnormal rhythm GI Inspection: normal to inspection, non-distended and obesity Palpation: soft Auscultation: normal bowel sounds Skin General skin exam: ecchymosis (left frontal) Neuro General: patient alert, patient awake, patient oriented x3, moves all extremities and no focal motor deficits Cranial Nerves: facial strength normal Extrem General: normal to inspection, no calf tenderness and edema Laterality: bilateral (trace nonpitting edema bilateral ankles and lower tibia) Psych Appearance: grossly normal and well kempt Mental Status: mental status grossly normal Speech and Movement: speech and movement normal Mood: congruent mood Affect: normal affect Attitude: cooperative Thought Process: normal Thought Content: normal Insight: insight good Judgment: judgment good Objective Last Vital Signs Temp 37.0 C 10/31/22 14:57 Pulse 106 H 10/31/22 14:57 Resp 20 10/31/22 14:57 BP 151/76 H 10/31/22 14:57 Pulse Ox 96 10/31/22 14:57 Laboratory Results - last 24 hr 10/31/22 06:30 Sodium 135 L Potassium 4.3 Chloride 97 L Carbon Dioxide 32.3 H Anion Gap 5.7 BUN 16 Creatinine 0.7 Est GFR (CKD-EPI 2020) 89.02 Glucose 100 Calcium 9.2 Magnesium 2.0 Time Spent with Patient Time Spent with Patient: <25 minutes Time was spent: preparing to see the patient(eg.review tests), ordering medications,tests, procedures, referring, communicating with other health career guidance counselor and indepentently interpreting results
[2022-10-31 15:59] LABS: Lab Add On Test DONE
[2022-10-31 16:32] LABS: Procalcitonin 0.1 ng/mL
[2022-10-31] MEDS: Senna TAB 2 TAB PO (17:16)
[2022-10-31] MEDS: Normal Saline Flush 10 ML SYR IVP ×2 (18:20→21:08)
[2022-10-31] MEDS: Carvedilol 12.5 MG TAB 25 MG PO (21:04)
[2022-10-31] MEDS: Atorvastatin 40 MG TAB PO (21:05)
[2022-10-31] MEDS: buPROPion-CR 100 MG TABCR PO (21:05)
[2022-11-01] VITALS (7 sets, daily range): BP systolic 143–180; BP diastolic 80–99; PULSE 76–96; RESP 17–19; TEMP 36.2–36.8; O2SAT 90–95
[2022-11-01 06:36] LABS: Abs Immature Grans 0.03 10^3/uL (0.0-0.06); Absolute Basophil Count 0.02 10^3/uL (0.0-0.2); Absolute Eosinophil Count 0.11 10^3/uL (0.0-0.7); Absolute Lymphocyte Count 1.31 10^3/uL (1.2-3.4); Absolute Neutrophil Count 3.27 10^3/uL (1.2-6.7); Basophils % 0.4; Eosinophils % 2.1; HCT 32.1 % (36.0-46.0); HGB 10.2 g/dL (11.2-15.7); Immature Grans % 0.6; MCHC 31.8 % (32.0-36.0); MCV 91 fL (80-95); MPV 10.1 fL (8.0-11.0); Monocytes % 9.5; Neutrophils % 62.4; Platelet Count 209 10^3/uL (130-400); RBC 3.52 10^6/uL (3.93-5.22); RDW 14.5 % (11.7-14.6); RDW-SD 48.2 fL; WBC 5.24 10^3/uL (4.4-10.8)
[2022-11-01] MEDS: Normal Saline Flush 10 ML SYR IVP (08:05)
[2022-11-01] MEDS: OXcarbazepine 150 MG TAB 600 MG PO (08:05)
[2022-11-01] MEDS: Pantoprazole 40 MG TABCR PO (08:06)
[2022-11-01] MEDS: Carvedilol 12.5 MG TAB 25 MG PO (08:06)
[2022-11-01] MEDS: Magnesium Oxide 400 MG TAB PO (08:06)
[2022-11-01] MEDS: Apixaban 5 MG TAB PO (08:06)
[2022-11-01] MEDS: Torsemide 20 MG TAB 60 MG PO (08:07)
[2022-11-01] MEDS: Calcium Carbonate 1.5 GM TAB PO (08:07)
[2022-11-01] MEDS: DULoxetine 20 MG CAP PO (08:07)
[2022-11-01] MEDS: Losartan 50 MG TAB PO (08:07)
[2022-11-01] MEDS: Clopidogrel 75 MG TAB PO (08:07)
[2022-11-01] MEDS: Spironolactone 25 MG TAB PO (08:07)
[2022-11-01] MEDS: Acetaminophen 325 MG TAB PO (08:13)
--- NOTE | 2022-11-01 08:25 | NUR.NOTE ---
pt is having concerns about possibly having low oxygen sat at home. will ask case mngt and provider if they could possibly get homehealth set up with oxygen
[2022-11-01] MEDS: Budesonide/Formoterol 160/4.5 6 GM 60 PUFF INH IH (09:13)
--- NOTE | 2022-11-01 09:26 | PDOC.CMPRO ---
Date of service: 11/01/22 Time of Service: 09:26 Care Management Progress Note Progress Note Text Progress Note Text: S/O: A:Mahendra is a 77 year old woman admitted on 10/29/22 with atrial flutter P:Anticipate Mehreen will be discharged home when medically cleared by provider. She will follow up with her PCP and Cardiology and transport with [facility]. CM will continue to follow and assess for discharge needs.
--- NOTE | 2022-11-01 13:25 | W.PM.DS.N ---
Date of service: 11/01/22 Time of Service: 13:25 DS: Diagnosis Discharge Diagnosis (1) Bradyarrhythmia: Status: Acute Asessment and Plan: Resolve with stopping Diltiazem. Continues on home dose of carvedilol 25mg BID. Sleeping at night w/o palpitations waking her. Will monitor heart rate; recommended obtaining an oximeter to track HR. Follow up with Dr Telles, cardiology, per her recommendation. (2) Atrial flutter: Status: Acute Asessment and Plan: Chronic. Cont Eliquis for AC. Cont Carvedilol 25mg BID for rate control. Diltiazem stopped. (3) Syncope: Status: Chronic Asessment and Plan: Appears to be related to bradycardia which has resolved with a decrease in HR lower medications. (4) COPD (chronic obstructive pulmonary disease): Status: Chronic Asessment and Plan: No exacerbation. Cont home tx. (5) CAD (coronary artery disease): Status: Chronic Asessment and Plan: Cont clopidogrel and atorvastatin. (6) Diabetes mellitus: Status: Chronic Asessment and Plan: A1c 6.4 Diet controlled. Monitor with PCP. (7) Diastolic heart failure: Status: Acute Asessment and Plan: Cont spironolactone and torsemide. Monitor K at PCP follow up. Discharge Plan Disposition Patient Disposition: Home Condition: Improving Discharge Details Reason For Visit: Atrial Flutter and Bradycardia Admit Date/Time: 10/29/22 05:49 Admit Provider: Jonny Banks Attending Provider: Jonny Banks Primary Care Provider: Parth Harry Hospital Course Hospital Course: This is a 77 yr old female w/ PMH of atrial fibrillation (HR treated w/ carvediloll and diltiazem XR, anticoagulated w/ Eliquis), CAD (s/p CX stent 2017), HTN, HFPEF (last echo 04/14/22 LVEF 50-55% w/ conc. LVH, normal RV, mild to mod. MR and MAC, no AI or ) who presents to the E.D. w/ syncope and was found to be in slow atrial flutter w/ ventricular rates 30's w/ 6:1 AV conduction,? initial BP was okd 134/115 but then dropped into the high 80's before she was given atropine 0.5 mg? glucagon 3 mg IVP before improvement in her AV conduction. Patient had CT head as she had hit her head during the syncope and d/t her being on Elquis and Plavix. CT head noncontrast? showed age related involutional changes and white matter hypodensitites but no bleed or infarct. CXR was done and demoonstrated cardiomegaly and alveolar and interstitial densities c/w CHF (new when compared to prior CXR from 02/12/22). Labs were remarkable for low magnesium of 1.7, normal troponin of <50, normal potassium of 4.1, and anemia w/ Hb 10.4 gm. Patient is admitted to med/surg on telemetry for monitoring and adjustment in her rate controlling meds, diuresis and cardiology consultation. Patient states that she has been dyspneic w/ any activity for several months but more recently has had orthopnea. She relates intermittent chest discomfort that she feels is her afib. See Diagnosis F/U with PCP in 1-2 weeks. Home Meds and New Rx's Prescriptions: New torsemide 20 mg Tablet 20 mg PO DAILY Qty: 30 0RF Continued losartan 50 mg tablet 50 mg PO DAILY acetaminophen [Tylenol Arthritis Pain] 650 mg tablet extended release 650 mg PO BID atorvastatin 40 mg tablet 40 mg PO QHS clopidogrel 75 mg tablet 75 mg PO DAILY sennosides [senna] 8.6 mg tablet 17.2 mg PO DAILY nitroglycerin 0.4 mg tablet, sublingual 0.4 mg sublingual Q5M PRN Rx Instructions: do not exceed 3 doses per episode diphenhydramine HCl [Allergy (diphenhydramine)] 25 mg tablet 25 mg PO .COMPLEX Rx Instructions: 25 mg PO; budesonide-formoterol [Symbicort] 160-4.5 mcg/actuation HFA aerosol inhaler 2 puff inhalation BID oxcarbazepine 300 mg tablet 600 mg PO BID spironolactone 25 MG tablet 25 mg PO DAILY Bupropion HCl 100 MG tablet 100 mg PO HS pantoprazole 20 mg tablet,delayed release (DR/EC) 40 mg PO DAILY duloxetine [Cymbalta] 20 mg capsule,delayed release(DR/EC) 20 mg PO DAILY magnesium oxide 400 MG tablet 400 mg PO DAILY Qty: 30 0RF carvedilol [Coreg] 12.5 MG tablet 25 mg PO BID Qty: 0 0RF calcium carbonate 600 mg calcium (1,500 mg) tablet 600 mg PO BID Eliquis 5 MG tablet 5 mg PO BID Discontinued diltiazem HCl [DILT-XR] 240 MG capsule,ext.rel 24h degradable 240 mg PO HS Discharge Instructions Additional Instructions: Monitor heart rate and report any persistent rate of less than 55 or greater than 95. Referrals: Parth Harry MD [Primary Care Provider] - 11/17/22 10:30 am Activity:: Activity as Tolerated Equipment/Supplies:: No Equipment Needed Diet:: heart healthy DS: Summary Time Spent with Patient providing and/or coordinating discharge services: Greater than 30 minutes Status at Discharge Functional status at discharge: independent ambulation Overall status at discharge: patient is progressing back to baseline Mental Status: mental status grossly normal Speech and Movement: speech and movement normal Mood: congruent mood Affect: normal affect Exam Narrative Exam Narrative: Pleasant and conversant. Sitting in recliner. Const General: cooperative and no acute distress Nutritional Appearance: obese Orientation: alert, awake and oriented x3 HENMT Head: contusion left frontal and periorbital ecchymosis (left) Ears: hearing grossly normal bilaterally Face and sinus: ecchymosis on the left forehead Mouth: oral mucosae normal Eyes Sclera: sclerae normal Neck Neck: normal visual inspection, full ROM, no lymphadenopathy, no meningeal signs, trachea midline, supple and no JVD Carotids: normal carotid upstroke Lymphatic: no lymphadenopathy noted Resp Effort & Inspection: normal respiratory effort and able to speak in complete sentences Auscultation: clear to auscultation bilaterally Cardio Jugular venous pressure: no JVD Palpation: normal PMI Rate: regular rate Rhythm: abnormal rhythm GI Inspection: normal to inspection, non-distended and obesity Palpation: soft Auscultation: normal bowel sounds Skin General skin exam: ecchymosis (left frontal) Neuro General: patient alert, patient awake, patient oriented x3, moves all extremities and no focal motor deficits Cranial Nerves: facial strength normal Extrem General: normal to inspection, no calf tenderness and edema Laterality: bilateral (trace nonpitting edema bilateral ankles and lower tibia) Psych Appearance: grossly normal and well kempt Mental Status: mental status grossly normal Speech and Movement: speech and movement normal Mood: congruent mood Affect: normal affect Attitude: cooperative Thought Process: normal Thought Content: normal Insight: insight good Judgment: judgment good DS: Data Vitals/I&O Vitals and I&O: Vital Signs Temperature 36.5 C 11/01/22 11:19 Temperature Source Tympanic 11/01/22 11:19 Pulse 93 H 11/01/22 11:19 Pulse Rhythm Irregular 11/01/22 08:17 Pulse 107 H 10/29/22 06:30 Respiratory Rate 18 11/01/22 11:19 Respiratory Effort Normal, Non-Labored 11/01/22 08:17 Respiratory Depth Normal 11/01/22 08:17 Respiratory Pattern Normal 11/01/22 08:17 Blood Pressure 156/80 H 11/01/22 11:19 Blood Pressure Mean 92 10/29/22 06:16 Blood Pressure Position Supine 10/29/22 03:10 Pulse Oximetry 90 L 11/01/22 11:19 Oxygen Delivery Method Room Air 11/01/22 11:19 Oxygen Flow Rate 0 11/01/22 11:19 Pain Level 1 11/01/22 08:23 Comment RN informed of BP 11/01/22 11:19 Intake & Output 10/31/22 11/01/22 11/01/22 23:59 11:59 23:59 Intake Total 350 / 710 360 / 710 Output Total 150 / 400 1400 / 1700 300 / 1700 Balance -150 / -400 -1050 / -990 60 / -990 Weight 116.3 kg 115.4 kg Intake: Oral 350 / 710 360 / 710 Output: Urine 150 / 400 1400 / 1700 300 / 1700 Other: Urine Color Yellow Pale Pale Yellow Yellow Urine Appearance Clear Clear Clear Urine Odor Normal None Stool Size Moderate Stool Characteristics Formed Brown Voiding Methods Bedside Commode Bedside Commode Bedside Commode Data Completed and Pending Labs on day of discharge: Labs from last 24 hours 11/01/22 10/31/22 10/31/22 06:15 06:30 06:30 WBC 5.24 RBC 3.52 L Hgb 10.2 L Hct 32.1 L MCV 91 MCH 29.0 MCHC 31.8 L RDW 14.5 Plt Count 209 MPV 10.1 Immature Gran % 0.6 Neutrophils % 62.4 Lymphocytes % 25.0 Monocytes % 9.5 Eosinophils % 2.1 Basophils % 0.4 Nucleated RBC % 0.0 Absolute Neutrophils 3.27 Absolute Lymphocytes 1.31 Absolute Monocytes 0.50 Absolute Eosinophils 0.11 Absolute Basophils 0.02 Procalcitonin 0.1 Add-On Test Request DONE [facility] All Active Problems Diastolic heart failure (Acute) Bradyarrhythmia (Acute) Atrial flutter (Acute) Syncope (Chronic) Atrial flutter (Acute) Depression (Chronic) COPD (chronic obstructive pulmonary disease) (Chronic) CAD (coronary artery disease) (Chronic) Diabetes mellitus (Chronic) Trigeminal neuralgia (Acute) GERD (gastroesophageal reflux disease) (Acute) Hyperlipidemia (Acute) Hypertension (Acute) Atrial flutter with rapid ventricular response (Acute) Obstructive sleep apnea (Acute) Demand ischemia (Acute) Constipation (Acute) Discharge planning issues (Acute) Medical History NSTEMI (non-ST elevated myocardial infarction) Surgical History S/P cholecystectomy S/P hernia repair Family History Other Heart disease Hyperlipidemia Hypertension Social History Smoking/Tobacco Use Status: Never Smoking risk assessment performed?: Yes Alcohol Intake: never Drug use: Never Substance use type: does not use Household members: spouse Number of Children: 3 current occupation: Retired What is your relationship status?: Panel score (0-1 are the most socially isolated patients): 1 Do you feel safe at home: Yes Do you feel safe in your relationship?: Yes Time Spent with Patient Time Spent with Patient: 45-69 minutes Time was spent: preparing to see the patient(eg.review tests), obtaining and/or reviewing separately otained hiistory, ordering medications,tests, procedures, referring, communicating with other health home care scheduler, indepentently interpreting results, counseling the patient and care coordination
--- NOTE | 2022-11-01 16:11 | PDOC.CMDIS ---
Date of service: 11/01/22 Time of Service: 16:11 LACE Index Scoring Tool Questions: Length of Stay (in days): 2 Was the patient admitted via the E.D.?: Yes Comorbidities: Previous M.I., Diabetes w/o Complication, Congestive Heart Failure and Chronic Pulmonary Disease E.D. Visits: 1 Answers: Total Score: 11 Risk of Readmission: High Risk Care Management Discharge Plan Reason for Hospitalization: atrial flutter Discharge Plan: Mehreen will be discharged home with no new services. She will follow up with her PCP and Cardiology and transport with family. Patient/Family Education Needs: Review of discharge instructions, limitations, activity, follow up plan, discuss Ask Me Three
== END 2022-11-01 15:40 | disposition home or self-care (01) | DRG 308 ==
LOC: ER 06:05 → MS 08:28
PROVIDERS: Family Medicine; Admitting Provider Internal Medicine; Emergency Provider Emergency Medicine Emergency Medical Services; PCP Internal Medicine; Visit Provider Internal Medicine
DX: I49.8 Other specified cardiac arrhythmias (principal); I50.33 Acute on chronic diastolic (congestive) heart failure; Z68.43 Body mass index [BMI] 50.0-59.9, adult; I48.92 Unspecified atrial flutter; J44.9 Chronic obstructive pulmonary disease, unspecified; I25.10 Atherosclerotic heart disease of native coronary artery without angina pectoris; E11.9 Type 2 diabetes mellitus without complications; G47.33 Obstructive sleep apnea (adult) (pediatric); Z79.01 Long term (current) use of anticoagulants; R55 Syncope and collapse; F32.A Depression, unspecified; K21.9 Gastro-esophageal reflux disease without esophagitis; G50.0 Trigeminal neuralgia; K59.00 Constipation, unspecified; I11.0 Hypertensive heart disease with heart failure; E78.5 Hyperlipidemia, unspecified; I25.2 Old myocardial infarction; I34.0 Nonrheumatic mitral (valve) insufficiency; E83.42 Hypomagnesemia; D64.9 Anemia, unspecified; E66.01 Morbid (severe) obesity due to excess calories; W18.39XA Other fall on same level, initial encounter
CPT/HCPCS: 36415; 80048; 80053; 84145; 93005; 94640; 96361; 96365; 96375; 99285; 99291; 70450; 71045; 81003; 81015; 83036; 83735; 83880; 84484; 85025; 93010; 94664; 94760; 99223; 99232; 99239; J1610; J2405; J3475

== ENCOUNTER 2022-11-12 08:37 | Outpatient (CLI) | payer MEDICARE, SELFPAY ==
--- NOTE | 2022-11-12 10:34 | RT.EKG_ITS ---
APPROVED REPORT Exam: Resting ECG Reason for Exam: CAD Patient Location: O HR:111 bpm ECG Measurements Heart Rate 111 AXIS MT [id number] P [id number] QRSd 166 QRS 61 QT 457 T 36 QTc 621 Conclusion Atrial flutter with varied AV block,...A-rate 227, varied AV conduction Right bundle branch block...QRSd>120, terminal axis(90,270)
== END 2022-11-12 08:38 | disposition home or self-care (01) ==
PROVIDERS: PCP Internal Medicine; Visit Provider Internal Medicine Cardiovascular Disease
DX: I25.10 Atherosclerotic heart disease of native coronary artery without angina pectoris (principal); I48.92 Unspecified atrial flutter
CPT/HCPCS: 93010

== ENCOUNTER → 2022-11-12 10:34 | Outpatient (BNVA) | payer MEDICARE, SELFPAY | PROVIDERS: PCP Internal Medicine; Referring Provider Internal Medicine; Visit Provider Internal Medicine Cardiovascular Disease | DX: I11.0 Hypertensive heart disease with heart failure (principal); I50.30 Unspecified diastolic (congestive) heart failure; I48.92 Unspecified atrial flutter; I25.10 Atherosclerotic heart disease of native coronary artery without angina pectoris | CPT/HCPCS: 93005; 99214 ==

== ENCOUNTER 2022-11-25 18:26 | Outpatient (REF) | payer MEDICARE, SELFPAY ==
[2022-11-25 21:40] LABS: Anion Gap 10.1 mmol/L (3-11); BUN 18 mg/dL (7-18); CO2 27.9 mmol/L (21.0-32.0); CREATININE 1.1 mg/dL (0.55-1.02); Chloride 98 mmol/L (98-107); Estimated GFR 51.75 (mL/min/1.73m2); Glucose 104 mg/dL (74-106); Potassium 4.5 mmol/L (3.5-5.1); Sodium 136 mmol/L (136-145)
== END 2022-11-25 18:27 | disposition home or self-care (01) ==
LOC: NCHCN 18:26
PROVIDERS: PCP Internal Medicine; Visit Provider Family Medicine
DX: I48.92 Unspecified atrial flutter (principal); E78.1 Pure hyperglyceridemia; I25.10 Atherosclerotic heart disease of native coronary artery without angina pectoris
CPT/HCPCS: 80048; 83735

== ENCOUNTER 2023-01-19 13:01 | Outpatient (REF) | payer MEDICARE, SELFPAY | END 2023-01-19 13:02 | disposition home or self-care (01) | LOC: NCHCN 13:01 | PROVIDERS: PCP Internal Medicine; Visit Provider Family Medicine | DX: R30.0 Dysuria (principal); B96.89 Other specified bacterial agents as the cause of diseases classified elsewhere | CPT/HCPCS: 87077; 87086; 87186 ==

== ENCOUNTER → 2023-01-24 13:46 | Outpatient (BNVA) | payer MEDICARE, SELFPAY | PROVIDERS: PCP Internal Medicine; Referring Provider Internal Medicine; Visit Provider Surgery | DX: D17.9 Benign lipomatous neoplasm, unspecified (principal); K21.9 Gastro-esophageal reflux disease without esophagitis | CPT/HCPCS: 99213; 99242 ==

== ENCOUNTER 2023-02-09 17:40 | Outpatient (REF) | payer MEDICARE, SELFPAY ==
[2023-02-09 21:04] LABS: Anion Gap 10.1 mmol/L (3-11); BUN 12 mg/dL (7-18); CO2 27.9 mmol/L (21.0-32.0); CREATININE 0.9 mg/dL (0.55-1.02); Calcium 9.2 mg/dL (8.5-10.1); Chloride 99 mmol/L (98-107); Estimated GFR 65.44 (mL/min/1.73m2); Glucose 101 mg/dL (74-106); Potassium 4.2 mmol/L (3.5-5.1); Sodium 137 mmol/L (136-145)
[2023-02-09 23:00] LABS: Hemoglobin A1C 6.5 % (<5.7)
== END 2023-02-09 17:41 | disposition home or self-care (01) ==
LOC: NCHCN 17:40
PROVIDERS: PCP Internal Medicine; Visit Provider Family Medicine
DX: R73.03 Prediabetes (principal); I10 Essential (primary) hypertension; I48.91 Unspecified atrial fibrillation; E66.9 Obesity, unspecified
CPT/HCPCS: 80048; 83036

== ENCOUNTER → 2023-02-21 13:11 | Outpatient (BNVA) | payer MEDICARE, SELFPAY | PROVIDERS: PCP Internal Medicine; Referring Provider Internal Medicine; Visit Provider Internal Medicine Cardiovascular Disease | DX: I11.0 Hypertensive heart disease with heart failure (principal); E11.9 Type 2 diabetes mellitus without complications; I48.92 Unspecified atrial flutter; I25.10 Atherosclerotic heart disease of native coronary artery without angina pectoris; I50.30 Unspecified diastolic (congestive) heart failure | CPT/HCPCS: 99214 ==

== ENCOUNTER 2023-05-20 20:12 | Outpatient (REF) | payer MEDICARE, SELFPAY ==
[2023-05-20 20:27] LABS: HCT 36.6 % (36.0-46.0); HGB 11.5 g/dL (11.2-15.7); MCH 28.5 pg (27.0-33.0); MCHC 31.4 % (32.0-36.0); MCV 91 fL (80-95); MPV 11.5 fL (8.0-11.0); Platelet Count 225 10^3/uL (130-400); RBC 4.04 10^6/uL (3.93-5.22); RDW 14.9 % (11.7-14.6); RDW-SD 49.6 fL; WBC 7.77 10^3/uL (4.4-10.8)
[2023-05-20 21:20] LABS: Iron 61 ug/dL (50-170); Total Iron Binding Capacity 414 ug/dL (250-450); Transferrin Sat 15 % (15-50)
[2023-05-20 21:29] LABS: ALT 24 U/L (14-59); AST 18 U/L (15-37); Albumin 3.6 g/dL (3.4-5.0); Alkaline Phosphatase 107 U/L (46-116); Anion Gap 9.5 mmol/L (3-11); BUN 14 mg/dL (7-18); Bilirubin, Total 0.3 mg/dL (0.2-1.0); CO2 28.5 mmol/L (21.0-32.0); CREATININE 0.9 mg/dL (0.55-1.02); Calcium 9.2 mg/dL (8.5-10.1); Chloride 102 mmol/L (98-107); Estimated GFR 65.44 (mL/min/1.73m2); Ferritin 29 ng/mL (8-252); Glucose 102 mg/dL (74-106); Potassium 4.2 mmol/L (3.5-5.1); Sodium 140 mmol/L (136-145); Total Protein 7.8 g/dL (6.4-8.2)
[2023-05-20 21:40] LABS: Vitamin D 25 Total 24.4 ng/mL (30-100)
== END 2023-05-20 20:13 | disposition home or self-care (01) ==
LOC: NCHCN 20:12
PROVIDERS: PCP Internal Medicine; Visit Provider Family Medicine
DX: D64.9 Anemia, unspecified (principal); R53.83 Other fatigue; I50.9 Heart failure, unspecified
CPT/HCPCS: 80053; 82306; 85027; 82728; 83540; 83550

== ENCOUNTER → 2023-06-27 12:32 | Outpatient (BNVA) | payer MEDICARE, SELFPAY | PROVIDERS: PCP Internal Medicine; Referring Provider Internal Medicine; Visit Provider Internal Medicine Interventional Cardiology | DX: I48.92 Unspecified atrial flutter (principal); I25.10 Atherosclerotic heart disease of native coronary artery without angina pectoris; I50.32 Chronic diastolic (congestive) heart failure; R06.02 Shortness of breath; U09.9 Post COVID-19 condition, unspecified | CPT/HCPCS: 99213 ==

== ENCOUNTER → 2023-12-06 14:34 | Outpatient (BNVA) | payer MEDICARE, SELFPAY | PROVIDERS: PCP Family Medicine; Referring Provider Family Medicine; Visit Provider Podiatrist | DX: B35.1 Tinea unguium (principal); L60.3 Nail dystrophy; M79.671 Pain in right foot; M79.672 Pain in left foot; G62.9 Polyneuropathy, unspecified; I70.203 Unspecified atherosclerosis of native arteries of extremities, bilateral legs | CPT/HCPCS: 11721; 99213 ==

== ENCOUNTER → 2023-12-26 13:00 | Outpatient (BNVA) | payer MEDICARE, SELFPAY | PROVIDERS: PCP Family Medicine; Visit Provider Internal Medicine Cardiovascular Disease | DX: I50.32 Chronic diastolic (congestive) heart failure (principal); I48.92 Unspecified atrial flutter; I25.10 Atherosclerotic heart disease of native coronary artery without angina pectoris; I10 Essential (primary) hypertension | CPT/HCPCS: 99213 ==

== ENCOUNTER → 2024-03-21 15:25 | Outpatient (BNVA) | payer MEDICARE, SELFPAY | PROVIDERS: PCP Family Medicine; Referring Provider Family Medicine; Visit Provider Podiatrist | DX: L60.3 Nail dystrophy (principal); B35.1 Tinea unguium; M79.671 Pain in right foot; M79.672 Pain in left foot; I70.203 Unspecified atherosclerosis of native arteries of extremities, bilateral legs; G62.9 Polyneuropathy, unspecified; R09.89 Other specified symptoms and signs involving the circulatory and respiratory systems; R60.0 Localized edema; L65.9 Nonscarring hair loss, unspecified; R20.2 Paresthesia of skin | CPT/HCPCS: 11719; 11721 ==